=== PATIENT | male | born 1975 | race Caucasian/White ===

== ENCOUNTER 2016-05-08 18:52 | Inpatient (IN) ==
--- NOTE | 2016-05-08 19:27 | Emergency Department Note ---
Disposition Clinical Impression: Suicidal ideation Depression Qualifiers: Depression Type: unspecified Qualified Code(s): F32.9 - Major depressive disorder, single episode, unspecified Overdose Qualifiers: Encounter type: initial encounter Injury intent: intentional self-harm Qualified Code(s): T50.902A - Poisoning by unspecified drugs, medicaments and biological substances, intentional self-harm, initial encounter Disposition: Admitted As Inpatient Condition: Fair Time of Disposition: 21:32 Psych HPI - General Chief Complaint: ED Psychiatric Symptoms Stated Complaint: SI Time Seen by Provider: 05/08/16 19:06 Source: patient Mode of arrival: ambulatory Limitations: no limitations Nursing Notes Reviewed: Yes Vital Signs Reviewed: Yes - History of Present Illness HPI Narrative: 41-year-old male who comes in complaining of depression and suicidal ideation. She is on Suboxone got his prescription on Tuesday and then on his birthday he started taking all of his medicines. He's been taking as much as he can for the last 2 days. He comes in awake and alert does not appear to be intoxicated. Pt complaint: suicidal ideation, feels depressed If medical clearance, reason: psychiatric condition Onset (ago): Just [employer] Duration: constant History of similar episodes: Yes Improves with: none Worsens with: none Associated Psychiatric Symptoms: depression, suicidal ideation Associated symptoms: Reports: denies other symptoms Traumatic symptoms: denies traumatic injury Treatments prior to arrival: none - Related Data Home Medications Medication Instructions Recorded Confirmed Suboxone 8 mg-2 mg Sl Film 0.5 film PO HS 05/09/16 05/09/16 Suboxone 8 mg-2 mg Sl Film 1 film PO QAM 05/09/16 05/09/16 Topiramate [Topamax] 50 mg PO BID 05/09/16 05/09/16 Allergies Allergy/AdvReac Type Severity Reaction Status Date / Time No Known Allergies Allergy Verified 05/08/16 18:56 Constitutional: Denies: fever, chills, weakness, weight change Eyes: Denies: eye pain, eye discharge, vision change ENT ED: Denies: ear pain, throat pain, dental pain, hearing loss, epistaxis, congestion, dysphagia Cardiovascular: Denies: chest pain, palpitations, dyspnea on exertion, edema, syncope Respiratory: Denies: cough, dyspnea, wheezes, hemoptysis, stridor Gastrointestinal: Denies: abdominal pain, nausea, vomiting, diarrhea, constipation, hematemesis, melena, hematochezia Genitourinary: Denies: urgency, dysuria, frequency, hematuria Musculoskeletal: Denies: back pain, neck pain, arthralgia, myalgia Integumentary: Denies: rash, abrasion, lesions Neurological: Denies: headache, weakness, numbness, paresthesias, confusion, abnormal gait, vertigo Psychiatric: Reports: depression, suicidal thoughts. Denies: anxiety, homicidal thoughts, auditory hallucinations, visual hallucinations Endocrine: Denies: fatigue Hematological/Lymphatic: Denies: easy bleeding, easy bruising Allergic/Immunologic: Denies: facial swelling, urticaria Past Medical History - Past Medical History Medical history: Reports: no medical history Psychiatric history: Reports: anxiety, depression, prior suicide attempt, previous psychiatric hospitalization - Social History Smoking Status: Current every day smoker Alcohol use: Reports: occasionally, heavy, recent Drug use: Reports: cocaine, opiates, methamphetamine, prescription drug abuse Physical Exam - General Limitations: no limitations General appearance: alert, in no apparent distress - Head Head exam: atraumatic, normocephalic, normal inspection - Eye Eye exam: Present: normal appearance, PERRL, EOMI - ENT ENT exam: normal exam, normal oropharynx, mucous membranes moist - Neck Neck exam: Present: normal inspection, full ROM, trachea midline - Chest Chest inspection: Present: normal inspection, symmetric chest wall rise - Respiratory Respiratory exam: Present: normal lung sounds bilaterally - Cardiovascular Cardiovascular exam: Present: regular rate, normal rhythm, normal heart sounds - Abdominal Exam Abdominal exam: Present: soft, Non-Tender. Absent: tenderness, distention, guarding, rebound, rigidity - Extremities Exam Extremities exam: Present: normal inspection, full ROM. Absent: tenderness, pedal edema - Expanded Lower Extremity Exam Neurovascular/Tendon exam: Absent: motor deficit, sensory deficit, tendon deficit Gait: observed and normal - Back Exam Back exam: Present: normal inspection, full ROM. Absent: tenderness - Neurological Exam Neurological exam: Present: alert, oriented X3 - Psychiatric Psychiatric exam: Present: normal affect, normal mood - Skin Skin exam: Present: warm, dry, intact, normal color Course - Consultations Consultation #1: Poison control- obs 12 hrs recommended. Time: 20:59 Consultation #2: Discussed with Dr. Esteban who clears the patient to be admitted and wanted a period Time: 21:44 Vital Signs Temperature 97.9 F 05/08/16 18:54 Pulse Rate 99 05/08/16 18:54 Respiratory Rate 16 05/08/16 18:54 Blood Pressure 150/100 05/08/16 18:54 O2 Sat by Pulse Oximetry 97 05/08/16 18:54 Temperature 96.8 F L 05/10/16 20:51 Pulse Rate 87 05/10/16 20:51 Respiratory Rate 16 05/10/16 20:51 Blood Pressure 120/74 05/10/16 20:51 O2 Sat by Pulse Oximetry 99 05/09/16 12:27 Oxygen Delivery Oxygen Delivery Room Air Psych - Lab Data Result diagrams: 05/08/16 19:35 05/08/16 19:35 Lab Results 05/08/16 05/08/16 05/08/16 Range/Units 19:35 19:35 20:10 WBC 9.7 (4.3-11.1) K/mcL RBC 4.89 (4.19-5.50) M/mcL Hgb 14.6 (12.9-16.9) g/dL Hct 44.1 (37.5-50.1) % MCV 90.2 (83.0-100.0) fL MCH 29.9 (28.0-33.3) pg MCHC 33.1 (31.6-35.5) g/dL RDW 13.3 (11.5-14.5) % Plt Count 249 (140-400) K/mcL MPV 8.5 L (9.4-12.4) fL Immature Gran % 0.2 (0-4) % Seg Neutrophils % 62.1 % Lymphocytes % 30.5 % Monocytes % 5.9 % Eosinophils % 0.2 % Basophils % 1.1 % Neutrophils # 6.0 (1.6-8.9) K/mcL Lymphocytes # 2.9 (0.6-4.6) K/mcL Monocytes # 0.6 (0.0-1.3) K/mcL Eosinophils # 0.0 (0.0-0.6) K/mcL Basophils # 0.1 (0.0-0.2) K/mcL Sodium 140 (136-145) mEq/L Potassium 3.8 (3.5-4.5) mEq/L Chloride 110 H (98-109) mEq/L Carbon Dioxide 19 (19-29) mEq/L BUN 15 (8-26) mg/dL Creatinine 1.33 H (0.72-1.25) mg/dL Est GFR ( Amer) > 60 (> 60) Est GFR (Non-Af Amer) 59 L (> 60) BUN/Creatinine Ratio 11 (6-26) Glucose 111 H (70-99) mg/dL Calculated Osmolality 292 (280-300) Calcium 9.2 (8.6-10.8) mg/dL Total Bilirubin 0.3 (0.2-1.2) mg/dL Direct Bilirubin 0.2 (0.0-0.5) mg/dL Indirect Bilirubin 0.1 (0.0-1.2) mg/dL AST 21 (5-34) Units/L ALT 15 (0-55) Units/L Alkaline Phosphatase 70 (38-126) Units/L Serum Total Protein 7.4 (6.0-8.3) g/dL Albumin 3.9 (3.5-5.0) g/dL Globulin 3.5 (2.4-3.5) g/dL Albumin/Globulin Ratio 1.1 (1.1-2.2) Urine Color Yellow (Yellow) Urine Clarity Clear (Clear) Urine pH 5.0 (5.0-8.0) pH Units Ur Specific [place] > 1.030 H (1.010-1.025) Urine Protein Trace (Neg-Trace) mg/dL Urine Glucose (UA) Normal (Normal) mg/dL Urine Ketones Negative (Negative) mg/dL Urine Blood Negative (Negative) Urine Nitrite Negative (Negative) Urine Bilirubin Small H (Negative) Urine Urobilinogen Normal (Normal) mg/dL Ur Leukocyte Esterase Trace H (Negative) Urine Microscopic RBC 5-15 H (0-3) per hpf Urine Microscopic WBC 5-15 H (0-3) per hpf Ur Squamous Epith Cells Many H (None-Few) per lpf Urine Bacteria None Seen (None-Few) per hpf Hyaline Casts None Seen (None-Few) per lpf Salicylates < 5.0 L (15-30) mg/dL Urine Opiates Screen (Jdurpf=407) ng/mL Acetaminophen < 1.0 L (10-30) mcg/mL Ur Barbiturates Screen (Ehyszo=576) ng/mL Ur Phencyclidine Scrn (Cutoff=25) ng/mL Ur Amphetamines Screen (Mwtcrt=4512) ng/mL U Benzodiazepines Scrn (Skermu=667) ng/mL Urine Cocaine Screen (Cutoff= 300) ng/mL U Marijuana (THC) Screen (Cutoff = 50) ng/mL Ethyl Alcohol < 10 (0-10) mg/dL 05/08/16 Range/Units 20:10 WBC (4.3-11.1) K/mcL RBC (4.19-5.50) M/mcL Hgb (12.9-16.9) g/dL Hct (37.5-50.1) % MCV (83.0-100.0) fL MCH (28.0-33.3) pg MCHC (31.6-35.5) g/dL RDW (11.5-14.5) % Plt Count (140-400) K/mcL MPV (9.4-12.4) fL Immature Gran % (0-4) % Seg Neutrophils % % Lymphocytes % % Monocytes % % Eosinophils % % Basophils % % Neutrophils # (1.6-8.9) K/mcL Lymphocytes # (0.6-4.6) K/mcL Monocytes # (0.0-1.3) K/mcL Eosinophils # (0.0-0.6) K/mcL Basophils # (0.0-0.2) K/mcL Sodium (136-145) mEq/L Potassium (3.5-4.5) mEq/L Chloride (98-109) mEq/L Carbon Dioxide (19-29) mEq/L BUN (8-26) mg/dL Creatinine (0.72-1.25) mg/dL Est GFR ( Amer) (> 60) Est GFR (Non-Af Amer) (> 60) BUN/Creatinine Ratio (6-26) Glucose (70-99) mg/dL Calculated Osmolality (280-300) Calcium (8.6-10.8) mg/dL Total Bilirubin (0.2-1.2) mg/dL Direct Bilirubin (0.0-0.5) mg/dL Indirect Bilirubin (0.0-1.2) mg/dL AST (5-34) Units/L ALT (0-55) Units/L Alkaline Phosphatase (38-126) Units/L Serum Total Protein (6.0-8.3) g/dL Albumin (3.5-5.0) g/dL Globulin (2.4-3.5) g/dL Albumin/Globulin Ratio (1.1-2.2) Urine Color (Yellow) Urine Clarity (Clear) Urine pH (5.0-8.0) pH Units Ur Specific [place] (1.010-1.025) Urine Protein (Neg-Trace) mg/dL Urine Glucose (UA) (Normal) mg/dL Urine Ketones (Negative) mg/dL Urine Blood (Negative) Urine Nitrite (Negative) Urine Bilirubin (Negative) Urine Urobilinogen (Normal) mg/dL Ur Leukocyte Esterase (Negative) Urine Microscopic RBC (0-3) per hpf Urine Microscopic WBC (0-3) per hpf Ur Squamous Epith Cells (None-Few) per lpf Urine Bacteria (None-Few) per hpf Hyaline Casts (None-Few) per lpf Salicylates (15-30) mg/dL Urine Opiates Screen Negative (Znduxy=409) ng/mL Acetaminophen (10-30) mcg/mL Ur Barbiturates Screen Negative (Jwjfsz=692) ng/mL Ur Phencyclidine Scrn Negative (Cutoff=25) ng/mL Ur Amphetamines Screen Negative (Srpllg=5813) ng/mL U Benzodiazepines Scrn Negative (Lzmylk=569) ng/mL Urine Cocaine Screen Positive H (Cutoff= 300) ng/mL U Marijuana (THC) Screen Negative (Cutoff = 50) ng/mL Ethyl Alcohol (0-10) mg/dL Psychiatric Medical Clearance - Medical Clearance Checklist Medical History: No Social History Section defined Current Vitals: Last Vital Signs Temp 96.8 F L 05/10/16 20:51 Pulse 87 05/10/16 20:51 Resp 16 05/10/16 20:51 BP 120/74 05/10/16 20:51 Pulse Ox 99 05/09/16 12:27 Abnormal Labs: Abnormal lab results MPV 8.5 fL (9.4-12.4) L 05/08/16 19:35 Chloride 110 mEq/L (98-109) H 05/08/16 19:35 Creatinine 1.33 mg/dL (0.72-1.25) H 05/08/16 19:35 Est GFR (Non-Af Amer) 59 (> 60) L 05/08/16 19:35 Glucose 111 mg/dL (70-99) H 05/08/16 19:35 Ur Specific [place] > 1.030 (1.010-1.025) H 05/08/16 20:10 Urine Bilirubin Small (Negative) H 05/08/16 20:10 Ur Leukocyte Esterase Trace (Negative) H 05/08/16 20:10 Urine Microscopic RBC 5-15 per hpf (0-3) H 05/08/16 20:10 Urine Microscopic WBC 5-15 per hpf (0-3) H 05/08/16 20:10 Ur Squamous Epith Cells Many per lpf (None-Few) H 05/08/16 20:10 Salicylates < 5.0 mg/dL (15-30) L 05/08/16 19:35 Acetaminophen < 1.0 mcg/mL (10-30) L 05/08/16 19:35 Urine Cocaine Screen Positive ng/mL (Cutoff= 300) H 05/08/16 20:10 Statement of Medical Clearance: I have evaluated the patient, reviewed diagnostic information, and certify that the patient's medical condition is sufficiently stable that transfer to the psychiatric unit does not pose a significant risk of deterioration. S.B.A.R. - S.B.A.R. Recommendation: Recommendation based on pending studies, treatments, or consults S.B.A.R. Report Given to: Dr. Kalli Arguelles.A.Jaime Repor Time: 23:00 (Patient with depression, cleared by medicine disposition based on 1A finding)
[2016-05-08 19:42] LABS: Basophils # 0.1 K/mcL (0.0-0.2); Basophils % 1.1 %; Eosinophils % 0.2 %; Hematocrit 44.1 % (37.5-50.1); Hemoglobin 14.6 g/dL (12.9-16.9); Immature Granulocytes % 0.2 % (0-4); Lymphocytes # 2.9 K/mcL (0.6-4.6); Lymphocytes % 30.5 %; Mean Corpuscular HGB Conc 33.1 g/dL (31.6-35.5); Mean Corpuscular Hemoglobin 29.9 pg (28.0-33.3); Mean Corpuscular Volume 90.2 fL (83.0-100.0); Mean Platelet Volume 8.5 fL (9.4-12.4); Monocytes # 0.6 K/mcL (0.0-1.3); Monocytes % 5.9 %; Platelet Count 249 K/mcL (140-400); Red Blood Count 4.89 M/mcL (4.19-5.50); Red Cell Distribution Width 13.3 % (11.5-14.5); Segmented Neutrophils % 62.1 %
[2016-05-08 19:55] LABS: BUN/Creatinine Ratio 11 (6-26); Blood Urea Nitrogen 15 mg/dL (8-26); Calcium 9.2 mg/dL (8.6-10.8); Carbon Dioxide 19 mEq/L (19-29); Chloride 110 mEq/L (98-109); Glucose 111 mg/dL (70-99); Osmolality,Calculated 292 (280-300); Potassium 3.8 mEq/L (3.5-4.5); Sodium 140 mEq/L (136-145); eGFR For African Americans > 60 (> 60); eGFR For Non-African Americans 59 (> 60)
[2016-05-08 19:56] LABS: Acetaminophen < 1.0 mcg/mL (10-30); Ethanol < 10 mg/dL (0-10); Salicylate < 5.0 mg/dL (15-30)
[2016-05-08 20:18] LABS: Bilirubin,Urine Small (Negative); Blood,Urine Negative (Negative); Clarity,Urine Clear (Clear); Color,Urine Yellow (Yellow); Glucose,Urine (UA) Normal (Normal); Ketones,Urine Negative (Negative); Leukocyte Esterase,Urine Trace (Negative); Nitrite,Urine Negative (Negative); Protein,Urine Trace mg/dL (Neg-Trace); Specific Gravity,Urine > 1.030 (1.010-1.025); Urobilinogen,Urine Normal (Normal)
[2016-05-08 20:20] LABS: Bacteria,Urine None Seen per hpf (None-Few); Hyaline Casts,Urine None Seen per lpf (None-Few); Squamous Epithelial Cell,Urine Many per lpf (None-Few)
[2016-05-08 20:24] LABS: Amphetamine Screen,Urine Negative ng/mL (Cutoff=1000); Barbiturate Screen,Urine Negative ng/mL (Cutoff=200); Benzodiazepines Screen,Urine Negative ng/mL (Cutoff=200); Cannabinoid Screen,Urine Negative ng/mL (Cutoff = 50); Cocaine Screen,Urine Positive ng/mL (Cutoff= 300); Opiate Screen,Urine Negative ng/mL (Cutoff=300); Phencyclidine Screen,Urine Negative ng/mL (Cutoff=25)
[2016-05-08 21:09] LABS: Alanine Aminotransferase 15 Units/L (0-55); Albumin 3.9 g/dL (3.5-5.0); Albumin/Globulin Ratio 1.1 (1.1-2.2); Alkaline Phosphatase 70 Units/L (38-126); Aspartate Amino Transferase 21 Units/L (5-34); Bilirubin,Direct 0.2 mg/dL (0.0-0.5); Bilirubin,Indirect 0.1 mg/dL (0.0-1.2); Bilirubin,Total 0.3 mg/dL (0.2-1.2); Globulin 3.5 g/dL (2.4-3.5); Total Protein 7.4 g/dL (6.0-8.3)
--- NOTE | 2016-05-08 22:09 | Internal Medicine Consult Note ---
Date of Encounter: 05/08/16 Time of Encounter: 21:25 Internal Medicine - CN: HPI - Data of Consult Consult date: 05/08/16 Requesting Physician: Dr Bauman - Consult Narrative Reason for consult: Drug overdose, suicide ideamedical clearance for psychiatry hospitalization History of present illness: Mr. 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 He apparently took 30 tablets of Topiramate (unknown strength) and crack cocaine on 04/06, 12 tablets of Gabapentin 04/06 and 04/07. He snorted 1 tablet of Subutrex at about noon today. He feels depressed. He lost his job and his girl friend in the past week. He moved in with his aunt, and planned ending his life in commemoration of his 41 [address] birthday. His mother reports that he has tried ending his life since he was 17. He lost his daughter to cholangiocarcinoma. His mother was the source of Topiramate and Gabapentin. He apparently told his mum he had a headache and his mum provided her supplies of these medication as the patient will not go to see a doctor. The patient says he just feel mental drained and depressed. He does not feel drowsy. He has no other symptoms. His last use of any medication was over 10 hours ago. He is FULL CODE as per discussion, he nominates his mother , Tere Long ([phone]) as his NOK/POA. Medical history: Reports: no medical history Psychiatric history: Reports: anxiety, depression, multiple suicide attempts, previous psychiatric hospitalization Smoking Status: Current every day smoker, >1 ppd Alcohol use: Reports: occasionally, heavy, use on 05/07/2016. Drug use: Reports: cocaine, heroine (now on Subuxone), methamphetamine, prescription drug abuse Family history: Mother: depressio, DM2, CAD, PAD,COPD, HTN, pulmonary HTN, sister: polycythemia, daughter: cholangiocarcinoma. ROS: Depressed. He reports no other symptoms on ROS. A 10-point ROS was performed, positive and relevant negatives are detailed, system-symptom not mentioned is assumed negative unless otherwise stated. Vital Signs Temperature 97.9 F 05/08/16 18:54 Pulse Rate 99 05/08/16 18:54 Respiratory Rate 16 05/08/16 18:54 Blood Pressure 150/100 05/08/16 18:54 O2 Sat by Pulse Oximetry 97 05/08/16 18:54 Temperature 97.9 F 05/08/16 18:54 Pulse Rate 100 05/08/16 20:18 Respiratory Rate 99 05/08/16 20:18 Blood Pressure 127/92 05/08/16 20:18 O2 Sat by Pulse Oximetry 99 05/08/16 20:18 O/E: Not in distress. HEENT: Not pale, anicteric, afebrile, acyanotic, no JND, EOMI, PERRL. Chest: CTAB Heart: RRR, HS1/2, no murmur Abdomen: soft, non-tender, no masses. BODY SERVICE TEAM MEMBER: AAO x 3, no gross focal neurological deficits Skin: No active skin lesion Extremities: no pedal edema, normal pedal pulses, no calf tenderness. Lab Results 05/08/16 05/08/16 05/08/16 Range/Units 19:35 19:35 20:10 WBC 9.7 (4.3-11.1) K/mcL RBC 4.89 (4.19-5.50) M/mcL Hgb 14.6 (12.9-16.9) g/dL Hct 44.1 (37.5-50.1) % MCV 90.2 (83.0-100.0) fL MCH 29.9 (28.0-33.3) pg MCHC 33.1 (31.6-35.5) g/dL RDW 13.3 (11.5-14.5) % Plt Count 249 (140-400) K/mcL MPV 8.5 L (9.4-12.4) fL Immature Gran % 0.2 (0-4) % Seg Neutrophils % 62.1 % Lymphocytes % 30.5 % Monocytes % 5.9 % Eosinophils % 0.2 % Basophils % 1.1 % Neutrophils # 6.0 (1.6-8.9) K/mcL Lymphocytes # 2.9 (0.6-4.6) K/mcL Monocytes # 0.6 (0.0-1.3) K/mcL Eosinophils # 0.0 (0.0-0.6) K/mcL Basophils # 0.1 (0.0-0.2) K/mcL Sodium 140 (136-145) mEq/L Potassium 3.8 (3.5-4.5) mEq/L Chloride 110 H (98-109) mEq/L Carbon Dioxide 19 (19-29) mEq/L BUN 15 (8-26) mg/dL Creatinine 1.33 H (0.72-1.25) mg/dL Est GFR ( Amer) > 60 (> 60) Est GFR (Non-Af Amer) 59 L (> 60) BUN/Creatinine Ratio 11 (6-26) Glucose 111 H (70-99) mg/dL Calculated Osmolality 292 (280-300) Calcium 9.2 (8.6-10.8) mg/dL Total Bilirubin 0.3 (0.2-1.2) mg/dL Direct Bilirubin 0.2 (0.0-0.5) mg/dL Indirect Bilirubin 0.1 (0.0-1.2) mg/dL AST 21 (5-34) Units/L ALT 15 (0-55) Units/L Alkaline Phosphatase 70 (38-126) Units/L Serum Total Protein 7.4 (6.0-8.3) g/dL Albumin 3.9 (3.5-5.0) g/dL Globulin 3.5 (2.4-3.5) g/dL Albumin/Globulin Ratio 1.1 (1.1-2.2) Urine Color Yellow (Yellow) Urine Clarity Clear (Clear) Urine pH 5.0 (5.0-8.0) pH Units Ur Specific [place] > 1.030 H (1.010-1.025) Urine Protein Trace (Neg-Trace) mg/dL Urine Glucose (UA) Normal (Normal) mg/dL Urine Ketones Negative (Negative) mg/dL Urine Blood Negative (Negative) Urine Nitrite Negative (Negative) Urine Bilirubin Small H (Negative) Urine Urobilinogen Normal (Normal) mg/dL Ur Leukocyte Esterase Trace H (Negative) Urine Microscopic RBC 5-15 H (0-3) per hpf Urine Microscopic WBC 5-15 H (0-3) per hpf Ur Squamous Epith Cells Many H (None-Few) per lpf Urine Bacteria None Seen (None-Few) per hpf Hyaline Casts None Seen (None-Few) per lpf Salicylates < 5.0 L (15-30) mg/dL Urine Opiates Screen (Kkdsdu=800) ng/mL Acetaminophen < 1.0 L (10-30) mcg/mL Ur Barbiturates Screen (Ovwowg=477) ng/mL Ur Phencyclidine Scrn (Cutoff=25) ng/mL Ur Amphetamines Screen (Tisqdb=0937) ng/mL U Benzodiazepines Scrn (Qnqmgb=132) ng/mL Urine Cocaine Screen (Cutoff= 300) ng/mL U Marijuana (THC) Screen (Cutoff = 50) ng/mL Ethyl Alcohol < 10 (0-10) mg/dL 05/08/16 Range/Units 20:10 WBC (4.3-11.1) K/mcL RBC (4.19-5.50) M/mcL Hgb (12.9-16.9) g/dL Hct (37.5-50.1) % MCV (83.0-100.0) fL MCH (28.0-33.3) pg MCHC (31.6-35.5) g/dL RDW (11.5-14.5) % Plt Count (140-400) K/mcL MPV (9.4-12.4) fL Immature Gran % (0-4) % Seg Neutrophils % % Lymphocytes % % Monocytes % % Eosinophils % % Basophils % % Neutrophils # (1.6-8.9) K/mcL Lymphocytes # (0.6-4.6) K/mcL Monocytes # (0.0-1.3) K/mcL Eosinophils # (0.0-0.6) K/mcL Basophils # (0.0-0.2) K/mcL Sodium (136-145) mEq/L Potassium (3.5-4.5) mEq/L Chloride (98-109) mEq/L Carbon Dioxide (19-29) mEq/L BUN (8-26) mg/dL Creatinine (0.72-1.25) mg/dL Est GFR ( Amer) (> 60) Est GFR (Non-Af Amer) (> 60) BUN/Creatinine Ratio (6-26) Glucose (70-99) mg/dL Calculated Osmolality (280-300) Calcium (8.6-10.8) mg/dL Total Bilirubin (0.2-1.2) mg/dL Direct Bilirubin (0.0-0.5) mg/dL Indirect Bilirubin (0.0-1.2) mg/dL AST (5-34) Units/L ALT (0-55) Units/L Alkaline Phosphatase (38-126) Units/L Serum Total Protein (6.0-8.3) g/dL Albumin (3.5-5.0) g/dL Globulin (2.4-3.5) g/dL Albumin/Globulin Ratio (1.1-2.2) Urine Color (Yellow) Urine Clarity (Clear) Urine pH (5.0-8.0) pH Units Ur Specific [place] (1.010-1.025) Urine Protein (Neg-Trace) mg/dL Urine Glucose (UA) (Normal) mg/dL Urine Ketones (Negative) mg/dL Urine Blood (Negative) Urine Nitrite (Negative) Urine Bilirubin (Negative) Urine Urobilinogen (Normal) mg/dL Ur Leukocyte Esterase (Negative) Urine Microscopic RBC (0-3) per hpf Urine Microscopic WBC (0-3) per hpf Ur Squamous Epith Cells (None-Few) per lpf Urine Bacteria (None-Few) per hpf Hyaline Casts (None-Few) per lpf Salicylates (15-30) mg/dL Urine Opiates Screen Negative (Crqstq=747) ng/mL Acetaminophen (10-30) mcg/mL Ur Barbiturates Screen Negative (Gzoucb=586) ng/mL Ur Phencyclidine Scrn Negative (Cutoff=25) ng/mL Ur Amphetamines Screen Negative (Guczfy=6166) ng/mL U Benzodiazepines Scrn Negative (Irsdkq=997) ng/mL Urine Cocaine Screen Positive H (Cutoff= 300) ng/mL U Marijuana (THC) Screen Negative (Cutoff = 50) ng/mL Ethyl Alcohol (0-10) mg/dL IMP Polysubstance overdose Suicide attempt, failed Severe depression Illicit drug use PLAN He used only one tablet of Subutrex, which is his usual dose. Use of Topiramate and Gabapentin are far out, he remain asymptomatic, last use of Topiramate> 24 hours ago, last use of Gabapentin> 10 hours ago He use cocaine >24 hours ago. He use alcohol >24 hours ago, serum alcohol level < 10. He is medically cleared for psychiatric hospitalization. Psychiatric consultation. I thank the ED physician for for consulting Hospitalist service. Past Med Surg Social Fam HX - Past Medical History Medical history: no medical history Psychiatric history: anxiety, depression, prior suicide attempt, previous psychiatric hospitalization - Social History Smoking Status: Current every day smoker Alcohol use: occasionally, heavy, recent Drug use: cocaine, opiates, methamphetamine, prescription drug abuse Internal Medicine - CN: Meds Allergies No Known Allergies Allergy (Verified 05/08/16 18:56) Internal Medicine - CN: Exam - Constitutional Vitals: Temp Pulse Resp BP Pulse Ox 97.9 F 100 99 127/92 99 05/08/16 18:54 05/08/16 20:18 05/08/16 20:18 05/08/16 20:18 05/08/16 20:18 Internal Medicine - CN: Reslt - Labs CBC & Chem 7: 05/08/16 19:35 05/08/16 19:35 Labs: Short CBC 05/08/16 Range/Units 19:35 WBC 9.7 (4.3-11.1) K/mcL Hgb 14.6 (12.9-16.9) g/dL Hct 44.1 (37.5-50.1) % Plt Count 249 (140-400) K/mcL Neutrophils # 6.0 (1.6-8.9) K/mcL BMP 05/08/16 19:35 Sodium 140 Potassium 3.8 Chloride 110 H Carbon Dioxide 19 BUN 15 Creatinine 1.33 H Glucose 111 H Calcium 9.2 Liver Function 05/08/16 Range/Units 19:35 Total Bilirubin 0.3 (0.2-1.2) mg/dL Direct Bilirubin 0.2 (0.0-0.5) mg/dL AST 21 (5-34) Units/L ALT 15 (0-55) Units/L Alkaline Phosphatase 70 (38-126) Units/L Albumin 3.9 (3.5-5.0) g/dL Urine 05/08/16 Range/Units 20:10 Urine Color Yellow (Yellow) Urine Clarity Clear (Clear) Urine pH 5.0 (5.0-8.0) pH Units Ur Specific [place] > 1.030 H (1.010-1.025) Urine Protein Trace (Neg-Trace) mg/dL Urine Glucose (UA) Normal (Normal) mg/dL Consult Discharge Plan - Plan Referrals: NO,PCP [Primary Care Provider] -
[2016-05-08] MEDS: Nicotine 14 MG PATCH.TD24 TD SCH (23:55)
[2016-05-09] MEDS ORDERED: Haloperidol Lactate 5 MG/ML VIAL IM ONE (01:18)
[2016-05-09] MEDS ORDERED: *HR* LORazepam 2 MG/ML VIAL IM ONE (01:19)
--- NOTE | 2016-05-09 08:03 | Emergency Department Note ---
Disposition Clinical Impression: Suicidal ideation Depression Qualifiers: Depression Type: unspecified Qualified Code(s): F32.9 - Major depressive disorder, single episode, unspecified Overdose Qualifiers: Encounter type: initial encounter Injury intent: intentional self-harm Qualified Code(s): T50.902A - Poisoning by unspecified drugs, medicaments and biological substances, intentional self-harm, initial encounter Disposition: Transfer Psychiatric Hosp Condition: Fair Referrals: NO,PCP [Primary Care Provider] - Forms: ED Satisfaction Letter Psych HPI - General Chief Complaint: ED Psychiatric Symptoms Stated Complaint: SI Time Seen by Provider: 05/08/16 19:06 Source: patient Mode of arrival: ambulatory Nursing Notes Reviewed: Yes Vital Signs Reviewed: Yes - History of Present Illness Duration: constant Improves with: none Worsens with: none Associated symptoms: Reports: denies other symptoms Treatments prior to arrival: none - Related Data Allergies Allergy/AdvReac Type Severity Reaction Status Date / Time No Known Allergies Allergy Verified 05/08/16 18:56 Constitutional: Denies: fever, chills, weakness, weight change Eyes: Denies: eye pain, eye discharge, vision change ENT ED: Denies: ear pain, throat pain, dental pain, hearing loss, epistaxis, congestion, dysphagia Cardiovascular: Denies: chest pain, palpitations, dyspnea on exertion, edema, syncope Respiratory: Denies: cough, dyspnea, wheezes, hemoptysis, stridor Gastrointestinal: Denies: abdominal pain, nausea, vomiting, diarrhea, constipation, hematemesis, melena, hematochezia Genitourinary: Denies: urgency, dysuria, frequency, hematuria Musculoskeletal: Denies: back pain, neck pain, arthralgia, myalgia Integumentary: Denies: rash, abrasion, lesions Neurological: Denies: headache, weakness, numbness, paresthesias, confusion, abnormal gait, vertigo Psychiatric: Reports: depression, suicidal thoughts. Denies: anxiety, homicidal thoughts, auditory hallucinations, visual hallucinations Endocrine: Denies: fatigue Hematological/Lymphatic: Denies: easy bleeding, easy bruising Allergic/Immunologic: Denies: facial swelling, urticaria Past Medical History - Past Medical History Medical history: Reports: no medical history Psychiatric history: Reports: anxiety, depression, prior suicide attempt, previous psychiatric hospitalization - Social History Smoking Status: Current every day smoker Alcohol use: Reports: occasionally, heavy, recent Drug use: Reports: cocaine, opiates, methamphetamine, prescription drug abuse Physical Exam - General Limitations: no limitations General appearance: alert, in no apparent distress Course Course Narrative: This patient was signed out to me at shift change from Dr. Bauman. Please refer to his note for complete details of the history and physical examination. At shift change the patient has been medically cleared by the hospitalist and is awaiting evaluation and disposition by the [facility] psych service. Patient was seen and evaluated by the [facility] psych service and is presently awaiting arrangements for placement at another facility as there are no reds currently available at our psychiatric unit. At shift change the patient was discussed with the oncoming dayshift team, Dr. Pope and Dr. Murguia, however the charting is been completed and the patient should not require any further intervention charting unless there is a change in disposition or condition. Vital Signs Temperature 97.9 F 05/08/16 18:54 Pulse Rate 99 05/08/16 18:54 Respiratory Rate 16 05/08/16 18:54 Blood Pressure 150/100 05/08/16 18:54 O2 Sat by Pulse Oximetry 97 05/08/16 18:54 Temperature 97.9 F 05/08/16 18:54 Pulse Rate 64 05/09/16 06:42 Respiratory Rate 20 05/09/16 06:42 Blood Pressure 101/70 05/09/16 06:42 O2 Sat by Pulse Oximetry 100 05/09/16 06:42 Oxygen Delivery Oxygen Delivery Room Air Psych - Lab Data Result diagrams: 05/08/16 19:35 05/08/16 19:35 Lab Results 05/08/16 05/08/16 05/08/16 Range/Units 19:35 19:35 20:10 WBC 9.7 (4.3-11.1) K/mcL RBC 4.89 (4.19-5.50) M/mcL Hgb 14.6 (12.9-16.9) g/dL Hct 44.1 (37.5-50.1) % MCV 90.2 (83.0-100.0) fL MCH 29.9 (28.0-33.3) pg MCHC 33.1 (31.6-35.5) g/dL RDW 13.3 (11.5-14.5) % Plt Count 249 (140-400) K/mcL MPV 8.5 L (9.4-12.4) fL Immature Gran % 0.2 (0-4) % Seg Neutrophils % 62.1 % Lymphocytes % 30.5 % Monocytes % 5.9 % Eosinophils % 0.2 % Basophils % 1.1 % Neutrophils # 6.0 (1.6-8.9) K/mcL Lymphocytes # 2.9 (0.6-4.6) K/mcL Monocytes # 0.6 (0.0-1.3) K/mcL Eosinophils # 0.0 (0.0-0.6) K/mcL Basophils # 0.1 (0.0-0.2) K/mcL Sodium 140 (136-145) mEq/L Potassium 3.8 (3.5-4.5) mEq/L Chloride 110 H (98-109) mEq/L Carbon Dioxide 19 (19-29) mEq/L BUN 15 (8-26) mg/dL Creatinine 1.33 H (0.72-1.25) mg/dL Est GFR ( Amer) > 60 (> 60) Est GFR (Non-Af Amer) 59 L (> 60) BUN/Creatinine Ratio 11 (6-26) Glucose 111 H (70-99) mg/dL Calculated Osmolality 292 (280-300) Calcium 9.2 (8.6-10.8) mg/dL Total Bilirubin 0.3 (0.2-1.2) mg/dL Direct Bilirubin 0.2 (0.0-0.5) mg/dL Indirect Bilirubin 0.1 (0.0-1.2) mg/dL AST 21 (5-34) Units/L ALT 15 (0-55) Units/L Alkaline Phosphatase 70 (38-126) Units/L Serum Total Protein 7.4 (6.0-8.3) g/dL Albumin 3.9 (3.5-5.0) g/dL Globulin 3.5 (2.4-3.5) g/dL Albumin/Globulin Ratio 1.1 (1.1-2.2) Urine Color Yellow (Yellow) Urine Clarity Clear (Clear) Urine pH 5.0 (5.0-8.0) pH Units Ur Specific [place] > 1.030 H (1.010-1.025) Urine Protein Trace (Neg-Trace) mg/dL Urine Glucose (UA) Normal (Normal) mg/dL Urine Ketones Negative (Negative) mg/dL Urine Blood Negative (Negative) Urine Nitrite Negative (Negative) Urine Bilirubin Small H (Negative) Urine Urobilinogen Normal (Normal) mg/dL Ur Leukocyte Esterase Trace H (Negative) Urine Microscopic RBC 5-15 H (0-3) per hpf Urine Microscopic WBC 5-15 H (0-3) per hpf Ur Squamous Epith Cells Many H (None-Few) per lpf Urine Bacteria None Seen (None-Few) per hpf Hyaline Casts None Seen (None-Few) per lpf Salicylates < 5.0 L (15-30) mg/dL Urine Opiates Screen (Mpydfh=881) ng/mL Acetaminophen < 1.0 L (10-30) mcg/mL Ur Barbiturates Screen (Iaczfo=820) ng/mL Ur Phencyclidine Scrn (Cutoff=25) ng/mL Ur Amphetamines Screen (Fcsmce=8753) ng/mL U Benzodiazepines Scrn (Wwaeaf=400) ng/mL Urine Cocaine Screen (Cutoff= 300) ng/mL U Marijuana (THC) Screen (Cutoff = 50) ng/mL Ethyl Alcohol < 10 (0-10) mg/dL 05/08/16 Range/Units 20:10 WBC (4.3-11.1) K/mcL RBC (4.19-5.50) M/mcL Hgb (12.9-16.9) g/dL Hct (37.5-50.1) % MCV (83.0-100.0) fL MCH (28.0-33.3) pg MCHC (31.6-35.5) g/dL RDW (11.5-14.5) % Plt Count (140-400) K/mcL MPV (9.4-12.4) fL Immature Gran % (0-4) % Seg Neutrophils % % Lymphocytes % % Monocytes % % Eosinophils % % Basophils % % Neutrophils # (1.6-8.9) K/mcL Lymphocytes # (0.6-4.6) K/mcL Monocytes # (0.0-1.3) K/mcL Eosinophils # (0.0-0.6) K/mcL Basophils # (0.0-0.2) K/mcL Sodium (136-145) mEq/L Potassium (3.5-4.5) mEq/L Chloride (98-109) mEq/L Carbon Dioxide (19-29) mEq/L BUN (8-26) mg/dL Creatinine (0.72-1.25) mg/dL Est GFR ( Amer) (> 60) Est GFR (Non-Af Amer) (> 60) BUN/Creatinine Ratio (6-26) Glucose (70-99) mg/dL Calculated Osmolality (280-300) Calcium (8.6-10.8) mg/dL Total Bilirubin (0.2-1.2) mg/dL Direct Bilirubin (0.0-0.5) mg/dL Indirect Bilirubin (0.0-1.2) mg/dL AST (5-34) Units/L ALT (0-55) Units/L Alkaline Phosphatase (38-126) Units/L Serum Total Protein (6.0-8.3) g/dL Albumin (3.5-5.0) g/dL Globulin (2.4-3.5) g/dL Albumin/Globulin Ratio (1.1-2.2) Urine Color (Yellow) Urine Clarity (Clear) Urine pH (5.0-8.0) pH Units Ur Specific [place] (1.010-1.025) Urine Protein (Neg-Trace) mg/dL Urine Glucose (UA) (Normal) mg/dL Urine Ketones (Negative) mg/dL Urine Blood (Negative) Urine Nitrite (Negative) Urine Bilirubin (Negative) Urine Urobilinogen (Normal) mg/dL Ur Leukocyte Esterase (Negative) Urine Microscopic RBC (0-3) per hpf Urine Microscopic WBC (0-3) per hpf Ur Squamous Epith Cells (None-Few) per lpf Urine Bacteria (None-Few) per hpf Hyaline Casts (None-Few) per lpf Salicylates (15-30) mg/dL Urine Opiates Screen Negative (Foweqr=462) ng/mL Acetaminophen (10-30) mcg/mL Ur Barbiturates Screen Negative (Uagutt=824) ng/mL Ur Phencyclidine Scrn Negative (Cutoff=25) ng/mL Ur Amphetamines Screen Negative (Rywypg=4973) ng/mL U Benzodiazepines Scrn Negative (Qnxlbp=549) ng/mL Urine Cocaine Screen Positive H (Cutoff= 300) ng/mL U Marijuana (THC) Screen Negative (Cutoff = 50) ng/mL Ethyl Alcohol (0-10) mg/dL Psychiatric Medical Clearance - Medical Clearance Checklist Medical History: No Social History Section defined Current Vitals: Last Vital Signs Temp 97.9 F 05/08/16 18:54 Pulse 64 05/09/16 06:42 Resp 20 05/09/16 06:42 BP 101/70 05/09/16 06:42 Pulse Ox 100 05/09/16 06:42 Psychiatric Lab Panel: Drug Levels and Toxicity 05/08/16 05/08/16 19:35 20:10 Urine Opiates Screen Negative Acetaminophen < 1.0 L Ur Barbiturates Screen Negative Ur Phencyclidine Scrn Negative Ur Amphetamines Screen Negative U Benzodiazepines Scrn Negative Urine Cocaine Screen Positive H U Marijuana (THC) Screen Negative Ethyl Alcohol < 10 Abnormal Labs: Abnormal lab results MPV 8.5 fL (9.4-12.4) L 05/08/16 19:35 Chloride 110 mEq/L (98-109) H 05/08/16 19:35 Creatinine 1.33 mg/dL (0.72-1.25) H 05/08/16 19:35 Est GFR (Non-Af Amer) 59 (> 60) L 05/08/16 19:35 Glucose 111 mg/dL (70-99) H 05/08/16 19:35 Ur Specific [place] > 1.030 (1.010-1.025) H 05/08/16 20:10 Urine Bilirubin Small (Negative) H 05/08/16 20:10 Ur Leukocyte Esterase Trace (Negative) H 05/08/16 20:10 Urine Microscopic RBC 5-15 per hpf (0-3) H 05/08/16 20:10 Urine Microscopic WBC 5-15 per hpf (0-3) H 05/08/16 20:10 Ur Squamous Epith Cells Many per lpf (None-Few) H 05/08/16 20:10 Salicylates < 5.0 mg/dL (15-30) L 05/08/16 19:35 Acetaminophen < 1.0 mcg/mL (10-30) L 05/08/16 19:35 Urine Cocaine Screen Positive ng/mL (Cutoff= 300) H 05/08/16 20:10 Statement of Medical Clearance: I have evaluated the patient, reviewed diagnostic information, and certify that the patient's medical condition is sufficiently stable that transfer to the psychiatric unit does not pose a significant risk of deterioration.
[2016-05-09] MEDS: Nicotine 14 MG PATCH.TD24 TD SCH (12:28)
[2016-05-09] MEDS ORDERED: Haloperidol Lactate 5 MG/ML VIAL IM PRN (15:53)
[2016-05-09] MEDS ORDERED: traZODone 50 MG TABLET PO PRN (15:53)
[2016-05-09] MEDS ORDERED: hydrOXYzine pamoate 25 MG CAPSULE PO PRN (15:53)
[2016-05-09] MEDS ORDERED: *HR* LORazepam 2 MG/ML VIAL IM PRN (15:53)
[2016-05-09] MEDS ORDERED: Ibuprofen 400 MG TABLET PO PRN (15:53)
[2016-05-09] MEDS: *HR* LORazepam 1 MG TABLET PO PRN (16:10)
[2016-05-09] MEDS: Nicotine 21 MG PATCH.TD24 TD SCH (16:10)
[2016-05-09] MEDS: Topiramate 25 MG TABLET PO SCH (22:19)
[2016-05-10] MEDS: Nicotine 21 MG PATCH.TD24 TD SCH (08:37)
[2016-05-10] MEDS: Topiramate 25 MG TABLET PO SCH ×2 (08:40→20:32)
--- NOTE | 2016-05-10 10:56 | Psychiatry History & Physical ---
Date of Encounter: 05/10/16 Time of Encounter: 10:52 History of Present Illness Patient Stated Chief Complaint: suicidal Medicare Admission Attestation: For traditional Medicare patients the provided hospital inpatient services are reasonable and necessary and in the case of services not specified as inpatient -only under 42 CFR 419.22 (n), that they are appropriately provided as inpatient services in accordance 42 CFR 412.3. For Critical Access Hospital the patient may reasonably be expected to be discharged or transferred to a hospital within 96 hours after admission to the Critical Access Hospital. Admitted From: Emergency Dept History of Present Illness: Mr. Long is a 41 year old male admitted from the emergency room with his presentation depression and suicidal ideation patient was talking about killing himself and having many family stressors also in the emergency room he was found to be positive for cocaine and has a history of substance abuse for opiates and cocaine use. Past Med Surg Social Fam HX - Past Medical History Medical history: no medical history - Past Psychiatric History Psychiatric history: Reports: previous psychiatric hospitalization Family psychiatric history: Unknown Family History of Suicide: Unknown - Social History Smoking Status: Current every day smoker Smokeless Tobacco Status: No Alcohol use: occasionally, heavy, recent Drug use: cocaine, opiates, methamphetamine, prescription drug abuse Medications & Allergies Suboxone 8 mg-2 mg Sl Film 0.5 film PO HS 05/09/16 [History] Suboxone 8 mg-2 mg Sl Film 1 film PO QAM 05/09/16 [History] Topiramate [Topamax] 50 mg PO BID 05/09/16 [History] Allergies No Known Allergies Allergy (Verified 05/08/16 18:56) Review of Systems Psychiatric: Reports: depression, suicidal ideation, auditory hallucinations Mental Status Exam Patient orientation: Yes Person, Yes Time, Yes Place Level of alertness: Alert Patient appearance: Well Groomed, Well-nourished Behavior: agitated, hostile, restless, uncooperative Psychomotor activity: Agitated Eye contact: Fleeting Contact Mood description: Angry, Irritable Patient description of mood: Ineed my subaxon and cigaretts Affect description: labile, dysphoric Speech pattern: Clear, Coherent, Inappropriate to situation, Other (hostile) Speech volume: Normal Thought process: Linear, Goal Oriented Thought content: Yes Suicidal ideation Perceptual disturbances: No Auditory hallucinations, No Visual hallucinations Attention span: Unable to Focus Memory description: Immediate Impaired Patient reliability: Not Reliable Historian Intelligence estimate: Average Judgment: Poor Insight: None Results - Vital Signs Vital signs: Temp Pulse Resp BP Pulse Ox 98 F 80 16 100/63 99 05/10/16 09:00 05/10/16 09:00 05/10/16 09:00 05/10/16 09:00 05/09/16 12:27 - Labs Labs: Laboratory Last Values WBC 9.7 K/mcL (4.3-11.1) 05/08/16 19:35 RBC 4.89 M/mcL (4.19-5.50) 05/08/16 19:35 Hgb 14.6 g/dL (12.9-16.9) 05/08/16 19:35 Hct 44.1 % (37.5-50.1) 05/08/16 19:35 MCV 90.2 fL (83.0-100.0) 05/08/16 19:35 MCH 29.9 pg (28.0-33.3) 05/08/16 19:35 MCHC 33.1 g/dL (31.6-35.5) 05/08/16 19:35 RDW 13.3 % (11.5-14.5) 05/08/16 19:35 Plt Count 249 K/mcL (140-400) 05/08/16 19:35 MPV 8.5 fL (9.4-12.4) L 05/08/16 19:35 Immature Gran % 0.2 % (0-4) 05/08/16 19:35 Seg Neutrophils % 62.1 % 05/08/16 19:35 Lymphocytes % 30.5 % 05/08/16 19:35 Monocytes % 5.9 % 05/08/16 19:35 Eosinophils % 0.2 % 05/08/16 19:35 Basophils % 1.1 % 05/08/16 19:35 Neutrophils # 6.0 K/mcL (1.6-8.9) 05/08/16 19:35 Lymphocytes # 2.9 K/mcL (0.6-4.6) 05/08/16 19:35 Monocytes # 0.6 K/mcL (0.0-1.3) 05/08/16 19:35 Eosinophils # 0.0 K/mcL (0.0-0.6) 05/08/16 19:35 Basophils # 0.1 K/mcL (0.0-0.2) 05/08/16 19:35 Sodium 140 mEq/L (136-145) 05/08/16 19:35 Potassium 3.8 mEq/L (3.5-4.5) 05/08/16 19:35 Chloride 110 mEq/L (98-109) H 05/08/16 19:35 Carbon Dioxide 19 mEq/L (19-29) 05/08/16 19:35 BUN 15 mg/dL (8-26) 05/08/16 19:35 Creatinine 1.33 mg/dL (0.72-1.25) H 05/08/16 19:35 Est GFR ( Amer) > 60 (> 60) 05/08/16 19:35 Est GFR (Non-Af Amer) 59 (> 60) L 05/08/16 19:35 BUN/Creatinine Ratio 11 (6-26) 05/08/16 19:35 Glucose 111 mg/dL (70-99) H 05/08/16 19:35 Calculated Osmolality 292 (280-300) 05/08/16 19:35 Calcium 9.2 mg/dL (8.6-10.8) 05/08/16 19:35 Total Bilirubin 0.3 mg/dL (0.2-1.2) 05/08/16 19:35 Direct Bilirubin 0.2 mg/dL (0.0-0.5) 05/08/16 19:35 Indirect Bilirubin 0.1 mg/dL (0.0-1.2) 05/08/16 19:35 AST 21 Units/L (5-34) 05/08/16 19:35 ALT 15 Units/L (0-55) 05/08/16 19:35 Alkaline Phosphatase 70 Units/L (38-126) 05/08/16 19:35 Serum Total Protein 7.4 g/dL (6.0-8.3) 05/08/16 19:35 Albumin 3.9 g/dL (3.5-5.0) 05/08/16 19:35 Globulin 3.5 g/dL (2.4-3.5) 05/08/16 19:35 Albumin/Globulin Ratio 1.1 (1.1-2.2) 05/08/16 19:35 Urine Color Yellow (Yellow) 05/08/16 20:10 Urine Clarity Clear (Clear) 05/08/16 20:10 Urine pH 5.0 pH Units (5.0-8.0) 05/08/16 20:10 Ur Specific [place] > 1.030 (1.010-1.025) H 05/08/16 20:10 Urine Protein Trace mg/dL (Neg-Trace) 05/08/16 20:10 Urine Glucose (UA) Normal mg/dL (Normal) 05/08/16 20:10 Urine Ketones Negative mg/dL (Negative) 05/08/16 20:10 Urine Blood Negative (Negative) 05/08/16 20:10 Urine Nitrite Negative (Negative) 05/08/16 20:10 Urine Bilirubin Small (Negative) H 05/08/16 20:10 Urine Urobilinogen Normal mg/dL (Normal) 05/08/16 20:10 Ur Leukocyte Esterase Trace (Negative) H 05/08/16 20:10 Urine Microscopic RBC 5-15 per hpf (0-3) H 05/08/16 20:10 Urine Microscopic WBC 5-15 per hpf (0-3) H 05/08/16 20:10 Ur Squamous Epith Cells Many per lpf (None-Few) H 05/08/16 20:10 Urine Bacteria None Seen per hpf (None-Few) 05/08/16 20:10 Hyaline Casts None Seen per lpf (None-Few) 05/08/16 20:10 Salicylates < 5.0 mg/dL (15-30) L 05/08/16 19:35 Urine Opiates Screen Negative ng/mL (Kayurz=992) 05/08/16 20:10 Acetaminophen < 1.0 mcg/mL (10-30) L 05/08/16 19:35 Ur Barbiturates Screen Negative ng/mL (Kwjmyn=950) 05/08/16 20:10 Ur Phencyclidine Scrn Negative ng/mL (Cutoff=25) 05/08/16 20:10 Ur Amphetamines Screen Negative ng/mL (Mdwicz=6511) 05/08/16 20:10 U Benzodiazepines Scrn Negative ng/mL (Mulbgm=185) 05/08/16 20:10 Urine Cocaine Screen Positive ng/mL (Cutoff= 300) H 05/08/16 20:10 U Marijuana (THC) Screen Negative ng/mL (Cutoff = 50) 05/08/16 20:10 Ethyl Alcohol < 10 mg/dL (0-10) 05/08/16 19:35 Assessment and Plan (1) Suicidal ideation Current visit: Yes Status: Acute Plan: Admit inpatient for safety and stabilization, Close observation, Suicide Precautions per unit protocol, Encourage participation in unit milieu, Group Therapy, Monitor sleep, Monitor appetite Additional Plan: pt refused and discussion of treatment plan and insists to be discharged to get his Suboxone and be able to smoke. At the same time he endorse suicidal ideation. Risks, benefits, side effects, alternatives discussed w/pt: No (refused treatment) Patient agreeable to treatment: No (refused) Estimated Length of Stay (Days): 3 (2) Cocaine addiction Current visit: Yes Status: Acute Plan: Admit inpatient for safety and stabilization, Close observation, Suicide Precautions per unit protocol, Encourage participation in unit milieu, Group Therapy, Monitor sleep, Monitor appetite Risks, benefits, side effects, alternatives discussed w/pt: No (refused) Patient agreeable to treatment: No ( refused) Qualifiers: Substance use status: with intoxication Complication of substance-induced condition: with perceptual disturbance Qualified Code(s): F14.222 - Cocaine dependence with intoxication with perceptual disturbance (3) Opiate addiction Current visit: Yes Status: Acute Plan: Admit inpatient for safety and stabilization, Close observation, Suicide Precautions per unit protocol, Encourage participation in unit milieu, Group Therapy, Monitor sleep, Monitor appetite Risks, benefits, side effects, alternatives discussed w/pt: No (refused) Patient agreeable to treatment: No ( refused) Qualifiers: Substance use status: in withdrawal Qualified Code(s): F11.23 - Opioid dependence with withdrawal
[2016-05-10] MEDS: *HR* LORazepam 1 MG TABLET PO PRN (18:17)
[2016-05-10] MEDS: Divalproex (12 HR) 250 MG TABLET PO SCH (20:32)
[2016-05-11] MEDS: Nicotine 21 MG PATCH.TD24 TD SCH (08:31)
[2016-05-11] MEDS: Topiramate 25 MG TABLET PO SCH (08:32)
[2016-05-11] MEDS: Divalproex (12 HR) 250 MG TABLET PO SCH (08:32)
[2016-05-11 09:11] VITALS: BP 110/74
--- NOTE | 2016-05-11 11:44 | Discharge Summary ---
Date of Encounter: 05/11/16 Time of Encounter: 11:15 Diagnosis - Discharge Diagnosis (1) Depression Status: Chronic Qualifiers: Depression Type: unspecified Qualified Code(s): F32.9 - Major depressive disorder, single episode, unspecified Medications - Discharge Medications Prescriptions: Topiramate [Topamax] 50 mg PO BID #20 tablet Suboxone 8 mg-2 mg Sl Film 0.5 film PO HS 05/09/16 [History] Suboxone 8 mg-2 mg Sl Film 1 film PO QAM 05/09/16 [History] Topiramate [Topamax] 50 mg PO BID #20 tablet 05/11/16 [Rx] Allergies No Known Allergies Allergy (Verified 05/08/16 18:56) Provider Date of admission: 05/09/16 14:34 Primary care physician: PCP NO Discharging clinician: Eric Valerio Assessment and Plan - Patient/Caregiver Discharge Instructions Activity: resume usual activities as tolerated, increase activity as tolerated, return to work Diet: regular diet Additional Instructions: Patient plans to resume Suboxone treatment services at [facility]. Patient reports having an appointment there this date, 05/11/2016 at 2:40pm. - Follow up Plan Follow up with: Farzana Larson [Other] - 05/12/16 3:00 pm (This appointment is with Rehana to establish you as a patient with the agency. Once your case is open you will receive follow-up for medication managemen and counseling as needed. Please bring your insurance card and photo ID.) Overall status at discharge: Stable Disposition: Home, Self-Care Hospital Course Hospital course: Mr. Long is a 41 year old male who was admitted with suicidal thoughts and an attempted overdose secondary to multiple stresses in his life including his 41st birthday, recent breakup with his girlfriend and the anniversary of the of his daughter 1 year ago. He has not been having suicidal thoughts for the past 24 hours. He does not like the Depakote nor Trazodone secondary to side effects. (He states he has unusual dreams and is restless.) He feels the Topamax works fine and will continue to rely on it for his mood. He also will talk to his new outpatient therapist and psychiatrist regarding restarting Lexapro. He had been on it previously and felt it may have helped some, but now believes the dose may need to be higher. He did not want to start it here with his previous psychiatrist. He was stopped on it when he switched Suboxone doctors as the new doctor was unwilling to prescribe it. He is unsure why. He denies SI/HI, A/V hallucinations. He denies side effects of his current medications; stopping the Depakote and Trazodone. He is no longer feeling hopeless or helpless. His sleep is okay and his appetite is good. His energy and concentration are improving. He is no longer feeling sad and down. He is hopeful about starting college soon and has a safe place to live. He believes part of what he is feeling currently regarding anxiety is withdraw from his Suboxone and needs to complete his follow up appointment today with his doctor to continue therapy. His depression is better and he is feeling hopeful that he now has a primary care doctor and a therapist and psychiatrist he can see in outpatient which was set up by the unit director of social work. Time spent discussing smoking cessation with patient: 3 to 10 minutes Does patient wish to continue nicotine replacement upon disc: No - Time Spent with Patient Total time spent providing and/or coordinating discharge services: 25 min with psychiatrist Quality - Multiple Antipsychotics Patient discharged on 2 or more antipsychotic medications: No Mental Status Exam - Mental Status Exam Patient orientation: Yes Person, Yes Time, Yes Place, Yes Circumstance Level of alertness: Alert, Follows commands Patient appearance: Appropriate, Well Groomed, Well-nourished Behavior: calm, cooperative, anxious (Mildly anxious regarding his sobriety; needing Suboxone) Psychomotor activity: Normal Eye contact: Maintains Eye Contact Mood description: Depressed (Still mildy depressed, but hopeful) Affect description: congruent with mood Speech pattern: Normal rate, Normal rhythm, Normal tone, Appropriate, Clear, Coherent Speech Volume: Normal Thought process: Logical, Linear, Goal Oriented Thought Content: Yes Intact Judgment: Fair Insight: Partial
== END 2016-05-11 13:05 | disposition home or self-care (01) | DRG 812 ==
LOC: EMEROO 18:52 → 1ANU 05-09 14:34
PROVIDERS: ADMIT Psychiatry & Neurology Psychiatry; ATTEND Psychiatry & Neurology Psychiatry

== ENCOUNTER 2017-11-16 12:05 | Observation (INO) ==
[2017-11-16] MEDS ORDERED: Isovue-370 500 ML INFUS..BTL IV ONE (12:14)
--- NOTE | 2017-11-16 12:14 | Emergency Department Note ---
Disposition Clinical Impression: Hepatitis A Qualifiers: Hepatic coma status: without hepatic coma Qualified Code(s): B15.9 - Hepatitis A without hepatic coma Hepatitis B Qualifiers: Viral hepatitis chronicity: unspecified Hepatic coma status: without hepatic coma Hepatitis delta agent presence: without delta-agent Qualified Code(s): B19.10 - Unspecified viral hepatitis B without hepatic coma UTI (urinary tract infection) Qualifiers: Urinary tract infection type: acute cystitis Hematuria presence: without hematuria Qualified Code(s): N30.00 - Acute cystitis without hematuria Acute liver failure Qualifiers: Hepatic coma status: without hepatic coma Qualified Code(s): K72.00 - Acute and subacute hepatic failure without coma Disposition: Admitted As Inpatient Condition: Fair Time of Disposition: 14:22 Abdominal Pain HPI - General Chief Complaint: ED Abdominal Pain Stated Complaint: ABD pain, N/V Nursing Notes Reviewed: Yes Vital Signs Reviewed: Yes - History of Present Illness HPI Narrative: 42-year-old male presents emergency department with concern for nausea, vomiting , right upper quadrant abdominal pain. Patient has history of IV drug use. Last use of heroin was 2 days ago. Patient does have his gallbladder. Denies any fevers, chest pain, pressure, tightness, cough, sputum production. Pain Scale: 8 - Related Data Home Medications Medication Instructions Recorded Confirmed No Known Home Drugs 11/16/17 11/16/17 Allergies Allergy/AdvReac Type Severity Reaction Status Date / Time No Known Allergies Allergy Verified 11/16/17 12:09 All systems ED: reviewed and negative except as stated. Review of Systems: As Per HPI Constitutional: Denies: fever Gastrointestinal: Reports: nausea, vomiting Genitourinary: Denies: urgency, dysuria, frequency Integumentary: Denies: rash Endocrine: Reports: fatigue Abdominal Pain PMH - Past Medical History Medical history: Reports: no medical history Male Surgical History: Reports: vasectomy, other Psychiatric history: Reports: anxiety, bipolar, depression, prior suicide attempt, previous psychiatric hospitalization - Social History Smoking status: Current every day smoker Alcohol use: Reports: none Drug use: Reports: cocaine, opiates, methamphetamine Physical Exam - Head Head exam: normocephalic - Eye Eye exam: Present: EOMI - ENT ENT exam: normal oropharynx - Neck Neck exam: Present: trachea midline - Chest Chest inspection: Present: symmetric chest wall rise - Respiratory Respiratory exam: Present: normal lung sounds bilaterally. Absent: respiratory distress, accessory muscle use - Cardiovascular Cardiovascular exam: Present: regular rate, normal rhythm, normal heart sounds - Abdominal Exam Abdominal exam: Present: soft. Absent: distention, guarding, rebound, rigidity Abdominal tenderness: Present: RUQ, moderate - Extremities Exam Extremities exam: Present: normal capillary refill - Back Exam Back exam: Present: full ROM - Neurological Exam Neurological exam: Present: alert, oriented X3, CN II-XII intact - Psychiatric Psychiatric exam: Present: normal affect, normal mood Course Vital Signs Temperature 98.6 F 11/16/17 12:08 Pulse Rate 92 11/16/17 12:08 Respiratory Rate 18 11/16/17 12:08 Blood Pressure 139/88 11/16/17 12:08 O2 Sat by Pulse Oximetry 98 11/16/17 12:08 Temperature 98.3 F 11/16/17 22:58 Pulse Rate 79 11/16/17 22:58 Respiratory Rate 16 11/16/17 22:58 Blood Pressure 114/78 11/16/17 22:58 O2 Sat by Pulse Oximetry 97 11/16/17 22:58 Oxygen Delivery Oxygen Delivery Room Air Abdominal Pain - MDM Narrative Medical decision making narrative: 42-year-old male presents emergency department with concern for weakness, nausea , vomiting, right upper quadrant abdominal pain. Patient has scleral icterus on physical exam. Concern for right upper quadrant pathology such as hepatitis , cholecystitis. With a CT scan of abdomen and pelvis which revealed free fluid in the right upper quadrant extending along the side of the duodenum most of the gallbladder. There was some periportal edema noted as well. Concern for hepatitis by radiology. AST was 2361. ALT greater than 500. Patient positive for hepatitis a as well as hepatitis B on the hepatitis panel. A Shantz bilirubin was elevated at 3.1 total. Patient has positive nitrites in urine. We have given a gram Rocephin here in the emergency department to address this. Patient was given pain control as well as fluids in the emergency department. There was extensive discussion at bedside regarding patient's pain medication addiction, however, in the acute emergent setting, we felt as if the chronic pain medication was the safest and most effective medication to treat his acute symptoms in the setting of possible hepatic failure. He was also given Zofran for his nausea. Discussed the case with gastroenterology who said that they would agree to be consulted on the floor patient be admitted. Spoke with hospitalist agreed to accept patient for admission as well. Spoke with patient at bedside and he agreed for the plan. Abdomen/Pelvis CT 11/16/17 12:14 IMPRESSION: There is free fluid in the right upper quadrant in the diego hepatis extending along side the duodenum and also to the gallbladder. Also of note is some periportal edema. Differentials would include hepatitis, duodenal ulcer disease or less favored to cholecystitis. No gallstones are appreciated. D/ / Jae Mohan MD / Jae Mohan MD Interpreting Provider: Jae Mohan MD Chest X-Ray 11/16/17 12:15 IMPRESSION: No acute cardiopulmonary disease. D/ / 11/16/2017 12:34:08 Daniel Doyle MD / Tasia Gonzalez Interpreting Provider: Daniel Doyle MD - Lab Data Result diagrams: 11/16/17 12:36 11/16/17 12:36 Lab Results 11/16/17 11/16/17 11/16/17 Range/Units 12:32 12:36 12:36 WBC 3.8 L (4.3-11.1) K/mcL RBC 5.28 (4.19-5.50) M/mcL Hgb 15.4 (12.9-16.9) g/dL Hct 45.5 (37.5-50.1) % MCV 86.2 (83.0-100.0) fL MCH 29.2 (28.0-33.3) pg MCHC 33.8 (31.6-35.5) g/dL RDW 14.6 H (11.5-14.5) % Plt Count 145 (140-400) K/mcL MPV 9.4 (9.4-12.4) fL Immature Gran % 0.3 (0-4) % Seg Neutrophils % 35.5 % Lymphocytes % 52.6 % Monocytes % 9.5 % Eosinophils % 0.8 % Basophils % 1.3 % Neutrophils # 1.4 L (1.6-8.9) K/mcL Lymphocytes # 2.0 (0.6-4.6) K/mcL Monocytes # 0.4 (0.0-1.3) K/mcL Eosinophils # 0.0 (0.0-0.6) K/mcL Basophils # 0.1 (0.0-0.2) K/mcL Reactive Lymphocytes Present A (Not Present) Platelet Estimate Normal (Normal) PT (9.4-12.1) Seconds INR APTT (26.0-36.0) Seconds Sodium 136 (136-145) mEq/L Potassium 4.1 (3.5-5.1) mEq/L Chloride 103 (98-107) mEq/L Carbon Dioxide 26 (23-29) mEq/L BUN 14 (6-20) mg/dL Creatinine 0.96 (0.70-1.30) mg/dL Est GFR ( Amer) > 60 (> 60) Est GFR (Non-Af Amer) > 60 (> 60) BUN/Creatinine Ratio 15 (6-26) Glucose 133 H (70-105) mg/dL Calculated Osmolality 284 (280-300) Calcium 8.9 (8.6-10.3) mg/dL Total Bilirubin 3.6 H (0.3-1.0) mg/dL Direct Bilirubin (0.0-0.2) mg/dL Indirect Bilirubin (0.0-1.2) mg/dL AST 2361 H (13-39) Units/L ALT > 500 H (7-52) Units/L Alkaline Phosphatase 272 H (34-104) Units/L Troponin I < 0.03 (< 0.04) ng/mL Serum Total Protein 7.1 (6.4-8.9) g/dL Albumin 4.0 (3.5-5.7) g/dL Globulin 3.1 (2.4-3.5) g/dL Albumin/Globulin Ratio 1.3 (1.1-2.2) Lipase 46 (11-82) Units/L Urine Color [place] A (Yellow) Urine Clarity Clear (Clear) Urine pH 6.0 (5.0-8.0) pH Units Ur Specific [place] > 1.030 H (1.010-1.025) Urine Protein 30 H (Neg-Trace) mg/dL Urine Glucose (UA) Normal (Normal) mg/dL Urine Ketones 15 H (Negative) mg/dL Urine Blood Negative (Negative) Urine Nitrite Positive A (Negative) Urine Bilirubin Moderate H (Negative) Urine Urobilinogen Normal (Normal) mg/dL Ur Leukocyte Esterase Small H (Negative) Urine Microscopic RBC 5-15 H (0-3) per hpf Urine Microscopic WBC 0-3 (0-3) per hpf Ur Squamous Epith Cells None Seen (None-Few) per lpf Urine Bacteria None Seen (None-Few) per hpf Hyaline Casts None Seen (None-Few) per lpf Ur Culture Indicated? YES A (NO) Hepatitis A IgM Ab (Nonreactive) Hep Bs Antigen (Nonreactive) Hep B Core IgM Ab (Nonreactive) Hepatitis C Ab Screen (Nonreactive) 11/16/17 11/16/17 11/16/17 Range/Units 12:36 16:34 16:35 WBC (4.3-11.1) K/mcL RBC (4.19-5.50) M/mcL Hgb (12.9-16.9) g/dL Hct (37.5-50.1) % MCV (83.0-100.0) fL MCH (28.0-33.3) pg MCHC (31.6-35.5) g/dL RDW (11.5-14.5) % Plt Count (140-400) K/mcL MPV (9.4-12.4) fL Immature Gran % (0-4) % Seg Neutrophils % % Lymphocytes % % Monocytes % % Eosinophils % % Basophils % % Neutrophils # (1.6-8.9) K/mcL Lymphocytes # (0.6-4.6) K/mcL Monocytes # (0.0-1.3) K/mcL Eosinophils # (0.0-0.6) K/mcL Basophils # (0.0-0.2) K/mcL Reactive Lymphocytes (Not Present) Platelet Estimate (Normal) PT 12.8 H (9.4-12.1) Seconds INR 1.1 APTT 32.4 (26.0-36.0) Seconds Sodium (136-145) mEq/L Potassium (3.5-5.1) mEq/L Chloride (98-107) mEq/L Carbon Dioxide (23-29) mEq/L BUN (6-20) mg/dL Creatinine (0.70-1.30) mg/dL Est GFR ( Amer) (> 60) Est GFR (Non-Af Amer) (> 60) BUN/Creatinine Ratio (6-26) Glucose (70-105) mg/dL Calculated Osmolality (280-300) Calcium (8.6-10.3) mg/dL Total Bilirubin 3.1 H (0.3-1.0) mg/dL Direct Bilirubin 2.4 H (0.0-0.2) mg/dL Indirect Bilirubin 0.7 (0.0-1.2) mg/dL AST (13-39) Units/L ALT (7-52) Units/L Alkaline Phosphatase (34-104) Units/L Troponin I (< 0.04) ng/mL Serum Total Protein (6.4-8.9) g/dL Albumin (3.5-5.7) g/dL Globulin (2.4-3.5) g/dL Albumin/Globulin Ratio (1.1-2.2) Lipase (11-82) Units/L Urine Color (Yellow) Urine Clarity (Clear) Urine pH (5.0-8.0) pH Units Ur Specific [place] (1.010-1.025) Urine Protein (Neg-Trace) mg/dL Urine Glucose (UA) (Normal) mg/dL Urine Ketones (Negative) mg/dL Urine Blood (Negative) Urine Nitrite (Negative) Urine Bilirubin (Negative) Urine Urobilinogen (Normal) mg/dL Ur Leukocyte Esterase (Negative) Urine Microscopic RBC (0-3) per hpf Urine Microscopic WBC (0-3) per hpf Ur Squamous Epith Cells (None-Few) per lpf Urine Bacteria (None-Few) per hpf Hyaline Casts (None-Few) per lpf Ur Culture Indicated? (NO) Hepatitis A IgM Ab Reactive H (Nonreactive) Hep Bs Antigen Nonreactive (Nonreactive) Hep B Core IgM Ab Reactive H (Nonreactive) Hepatitis C Ab Screen Nonreactive (Nonreactive) - EKG Data EKG attestation: Yes I reviewed and interpreted this EKG. EKG results narrative: 12:30 Entry rate 80 bpm, [place] interval 150s 8 ms, QRS duration 95 ounces, QT 351 ms, QTC 396 months seconds, normal axis. Sinus rhythm with a ventricular rate of [address] changes on this EKG. Attestation Statement - Attestation Attestation: Patient was seen with resident physician. I reviewed the history, physical, assessment and plan, and agree with the findings. I also personally evaluated this patient and had [id number] time with this patient. 42-year-old male presents emergency Department chief complaint of right upper quadrant abdominal pain and nausea without vomiting. Patient states that he is kind of thrown up in the sauna back down. Started couple days ago. He has been unable to keep foods down. He also has noticed a really dark color in his urine. He has a history of drug abuse. Including crystal meth and heroin. Says he has not used for while. He was actually brought to us by drug rehabilitation facility where he showed up last night. Denies fevers or chills. No chest pain or short of breath. Review systems as above remainder negative. Physical exam vital signs were stable. ENT is unremarkable except for mild jaundice. Heart regular rhythm and rate. Lungs clear. Abdomen is tender in the right upper quadrant minimal guarding no rigidity positive bowel sounds. Extremities unremarkable. Neurologically intact. Skin no rashes. Psych normal. ED course we did discuss possible pain treatment options for him. And unfortunately with the potential for liver failure that exist considering the new onset of jaundice, we were limited to narcotic options which we are trying to avoid. We also treated the patient's nausea. We will get a CT scan full laboratory testing and likely admit the patient for additional care and treatment. Workup revealed hepatitis with liver failure. CT scan supported this finding. We treated the patient with pain management. We contacted the hospitalist service agreed to accept the patient for admission to hospital for treatment for his acute liver failure. Hemodynamically he remained stable. Agree with resident physician assessment and plan.
[2017-11-16] MEDS ORDERED: 0.9 % Sodium Chloride 1,000 ML IVC ONE (12:17)
[2017-11-16] MEDS ORDERED: Ondansetron 4 MG/2 ML VIAL IVP ONE (12:17)
[2017-11-16] MEDS ORDERED: *HR* FentaNYL (PF) 100 MCG/2 ML VIAL IVP ONE (12:17)
[2017-11-16 12:43] LABS: Bilirubin,Urine Moderate (Negative); Blood,Urine Negative (Negative); Clarity,Urine Clear (Clear); Color,Urine Orange (Yellow); Glucose,Urine (UA) Normal (Normal); Ketones,Urine 15 mg/dL (Negative); Leukocyte Esterase,Urine Small (Negative); Nitrite,Urine Positive (Negative); Protein,Urine 30 mg/dL (Neg-Trace); Specific Gravity,Urine > 1.030 (1.010-1.025); Urobilinogen,Urine Normal (Normal)
[2017-11-16 12:47] LABS: Bacteria,Urine None Seen per hpf (None-Few); Hyaline Casts,Urine None Seen per lpf (None-Few); Squamous Epithelial Cell,Urine None Seen per lpf (None-Few); WBC,Urine 0-3 per hpf (0-3)
[2017-11-16 12:49] LABS: Basophils # 0.1 K/mcL (0.0-0.2); Basophils % 1.3 %; Eosinophils % 0.8 %; Hematocrit 45.5 % (37.5-50.1); Hemoglobin 15.4 g/dL (12.9-16.9); Immature Granulocytes % 0.3 % (0-4); Lymphocytes % 52.6 %; Mean Corpuscular HGB Conc 33.8 g/dL (31.6-35.5); Mean Corpuscular Hemoglobin 29.2 pg (28.0-33.3); Mean Corpuscular Volume 86.2 fL (83.0-100.0); Mean Platelet Volume 9.4 fL (9.4-12.4); Monocytes # 0.4 K/mcL (0.0-1.3); Monocytes % 9.5 %; Neutrophils # 1.4 K/mcL (1.6-8.9); Platelet Count 145 K/mcL (140-400); Red Blood Count 5.28 M/mcL (4.19-5.50); Red Cell Distribution Width 14.6 % (11.5-14.5); Segmented Neutrophils % 35.5 %
[2017-11-16 13:14] LABS: Troponin I < 0.03 ng/mL (< 0.04)
[2017-11-16 13:36] LABS: Hepatitis B Surface Antigen Nonreactive (Nonreactive); Hepatitis C Virus Antibody Nonreactive (Nonreactive)
[2017-11-16 13:44] LABS: Platelet Estimate Normal (Normal)
[2017-11-16 13:45] LABS: Reactive Lymphocytes Present (Not Present)
[2017-11-16 13:53] LABS: Alanine Aminotransferase > 500 Units/L (7-52); Albumin/Globulin Ratio 1.3 (1.1-2.2); Alkaline Phosphatase 272 Units/L (34-104); Aspartate Amino Transferase 2361 Units/L (13-39); BUN/Creatinine Ratio 15 (6-26); Bilirubin,Total 3.6 mg/dL (0.3-1.0); Blood Urea Nitrogen 14 mg/dL (6-20); Calcium 8.9 mg/dL (8.6-10.3); Carbon Dioxide 26 mEq/L (23-29); Chloride 103 mEq/L (98-107); Globulin 3.1 g/dL (2.4-3.5); Glucose 133 mg/dL (70-105); Lipase 46 Units/L (11-82); Osmolality,Calculated 284 (280-300); Potassium 4.1 mEq/L (3.5-5.1); Sodium 136 mEq/L (136-145); Total Protein 7.1 g/dL (6.4-8.9); eGFR For Non-African Americans > 60 (> 60)
[2017-11-16 14:12] LABS: Hepatitis A Antibody IgM Reactive (Nonreactive)
[2017-11-16 14:13] LABS: Hepatitis B Core IgM Reactive (Nonreactive)
[2017-11-16] MEDS ORDERED: cefTRIAXone 1,000 MG in Water for inj. (sterile) 20 ML 10 ML IVP ONE (15:14)
[2017-11-16 18:02] LABS: Bilirubin,Direct 2.4 mg/dL (0.0-0.2); Bilirubin,Indirect 0.7 mg/dL (0.0-1.2); Bilirubin,Total 3.1 mg/dL (0.3-1.0)
[2017-11-16 18:05] LABS: INR 1.1; Prothrombin Time 12.8 Seconds (9.4-12.1)
[2017-11-16 18:08] LABS: Activated Partial Thrombo Time 32.4 Seconds (26.0-36.0)
[2017-11-16] MEDS ORDERED: Naloxone 0.4 MG/ML INJ IVP PRN (18:57)
[2017-11-16] MEDS ORDERED: 0.9 % Sodium Chloride 1,000 ML IVC SCH (19:00)
[2017-11-16] MEDS: *HR* OxyCODONE Immed Rel 5 MG TABLET PO PRN (19:40)
--- NOTE | 2017-11-17 00:39 | Internal Med History&Physical ---
Date of Encounter: 11/16/17 Time of Encounter: 21:00 Internal Medicine - H&P: HPI Chief complaint: JAUNDICE Admitted From: Home Plans for Post Hospital Care: Home History of present illness: Mr. Long is a 42 year old male. The patient developed generalized body aching and some weakness 2 days ago. Those are symptoms are subsiding. He has had moderate right upper quadrant abdominal pain with radiation to his right flank since yesterday morning. It is associated with yellow discoloration of his eyes, dark yellow urine and white stools. This patient is tested positive for IgM antibody to hepatitis A and IgM antibody to hepatitis B. He does not recall to have any problems with his liver before. He has been using IV cocaine for about 20 years. He has been using IV methamphetamine for a few years. He claims, that he does not share his needles. He did have unprotected sex with multiple partners recently. Denies alcohol drinking. Review of systems: All 14 organ systems were reviewed by me with the patient. Positive and pertinent negative findings are listed above. The rest of organ systems is negative. Assessment and plan: Acute hepatitis A and acute hepatitis B. It seems to be rather combination. His AST is 2361. His ALT is more than 500. His bilirubin is 3.1. GI diseases is consulted. Will test his CBC and CMP tomorrow morning. IV cocaine/methamphetamine user. Polysubstance abuse. We will consult social media campaign manager. Past Med Surg Social Fam HX - Past Medical History Medical history: no medical history Additional medical history: none Psychiatric history: anxiety, bipolar, depression, prior suicide attempt, previous psychiatric hospitalization - Past Surgical History Additional surgical history: right finger repair with pin - Social History Smoking Status: Current every day smoker Packs per day: 1 Smokeless Tobacco Status: No Alcohol use: none Drug use: cocaine, opiates, methamphetamine - Family History Mother Hx Family Cardiac Disorders: Yes Hx Family Respiratory Disorders: Yes Hx Family Cancer: No Hx Family GI Disorders: No Hx Family Genitourinary Disorders: No Hx Family Endocrine Disorder: Yes Hx Family Musculoskeletal Disorders: No Hx Family Neuromuscular Disorders: No Hx Family Neurologic Disorders: No Hx Family HEENT Disorders: No Hx Family Autoimmune Disorders: No Hx Family Reproductive Disorders: No Hx Family Psychosocial Disorders: No Hx Family Medical Disorders: No Father Living Status: Unknown Internal Medicine - H&P: Meds No Known Home Drugs 11/16/17 [History] 3 Allergy/AdvReac Type Severity Reaction Status Date / Time No Known Allergies Allergy Verified 11/16/17 12:09 All Systems PM: A 10-system review of systems was performed and is negative for pertinent findings except as documented above in the HPI. - Constitutional Vitals: Temp Pulse Resp BP Pulse Ox 98.3 F 79 16 114/78 97 11/16/17 22:58 11/16/17 22:58 11/16/17 22:58 11/16/17 22:58 11/16/17 22:58 General appearance: Present: A&O X 3, no acute distress, answers questions appropriately - Other Additional findings: Skin: Free of rash and discoloration. Eyes: Sclera is yellow. There is no discharge from eyes. ENMT: Oral/pharyngeal mucosa is normal in appearance. There is no discharge from nose or ears. Respiratory: Normal breath sounds with no crackles and wheezes bilaterally. CV: Heart is regular with no gallop or murmur. GI: His abdomen is tender in upper portion of her right upper quadrant; with extension to his right flank. There is no palpable mass or visceromegaly. : There is no tenderness in patient's flanks bilaterally. Neuro exam: He has good strength in upper and lower extremities. He has normal eye movements. Psychiatric: He has normal affect. His thought process is appropriate to the situation. Internal Med - H&P Results - Labs CBC & Chem 7: 11/16/17 12:36 11/16/17 12:36 - Time Spent With Patient Total time spent is greater than 50% in coordination of care (as documented) at patient's floor/unit and/or counseling patient:
[2017-11-17] MEDS: *HR* OxyCODONE Immed Rel 5 MG TABLET PO PRN ×2 (03:34→09:16)
[2017-11-17 06:32] LABS: Basophils % 0.7 %; Eosinophils # 0.1 K/mcL (0.0-0.6); Eosinophils % 2.8 %; Hematocrit 42.2 % (37.5-50.1); Lymphocytes # 1.4 K/mcL (0.6-4.6); Lymphocytes % 48.2 %; Mean Corpuscular HGB Conc 33.2 g/dL (31.6-35.5); Mean Corpuscular Volume 87.6 fL (83.0-100.0); Monocytes # 0.3 K/mcL (0.0-1.3); Monocytes % 12.1 %; Platelet Count 121 K/mcL (140-400); Red Blood Count 4.82 M/mcL (4.19-5.50); Red Cell Distribution Width 14.7 % (11.5-14.5); Segmented Neutrophils % 36.2 %
[2017-11-17 07:22] LABS: Alanine Aminotransferase > 500 Units/L (7-52); Albumin 3.4 g/dL (3.5-5.7); Albumin/Globulin Ratio 1.2 (1.1-2.2); Alkaline Phosphatase 221 Units/L (34-104); Aspartate Amino Transferase 1561 Units/L (13-39); BUN/Creatinine Ratio 10 (6-26); Bilirubin,Total 2.8 mg/dL (0.3-1.0); Blood Urea Nitrogen 9 mg/dL (6-20); Calcium 8.4 mg/dL (8.6-10.3); Carbon Dioxide 26 mEq/L (23-29); Chloride 106 mEq/L (98-107); Globulin 2.8 g/dL (2.4-3.5); Glucose 105 mg/dL (70-105); Magnesium 1.9 mg/dL (1.6-2.6); Osmolality,Calculated 277 (280-300); Potassium 4.5 mEq/L (3.5-5.1); Sodium 134 mEq/L (136-145); Total Protein 6.2 g/dL (6.4-8.9); eGFR For Non-African Americans > 60 (> 60)
[2017-11-17 07:48] LABS: Reactive Lymphocytes Present (Not Present)
[2017-11-17 07:49] LABS: Platelet Estimate Slight Decrease (Normal)
[2017-11-17] MEDS: Nicotine 21 MG PATCH.TD24 TD SCH (10:54)
--- NOTE | 2017-11-17 12:25 | Gastroenterology Consult Note ---
<Oxana Oscar - Last Filed: 11/17/17 16:37> Date of Encounter: 11/17/17 Time of Encounter: 10:00 - Assessment and plan (1) Hepatitis A Current Visit: Yes Status: Acute Assessment and plan: Acute jaundice and abdominal pain. LFTs are improving. Pt was advised precautions to prevent spread. Supportive care. Qualifiers: Hepatic coma status: without hepatic coma Qualified Code(s): B15.9 - Hepatitis A without hepatic coma (2) Hepatitis B Current Visit: Yes Status: Acute Assessment and plan: Hep B igm was positive but surface antigen was negative may be false positive. Will follow in the office with Dr Longo. If develops chronic Hep b, will have to be drug free for 6 months to be considered for treatment. Qualifiers: Viral hepatitis chronicity: unspecified Hepatic coma status: without hepatic coma Hepatitis delta agent presence: without delta-agent Qualified Code(s): B19.10 - Unspecified viral hepatitis B without hepatic coma - Time Spent With Patient Total time spent is greater than 50% in coordination of care (as documented) at patient's floor/unit and/or counseling patient: GI History of Present Illness - Data of Consult Patient: new to practice Consult date: 11/17/17 Requesting Physician: Marvel Overtno - Consult Narrative Reason for consult: Hepatitis A and B History of present illness: Mr. Long is a 42 year old male. He presented with a 2 day history of generalized body aches and weakness, He has had moderate right upper quadrant abdominal pain with radiation to his right flank, associated with yellow discoloration of his eyes, dark yellow urine and white stools. This patient is tested positive for IgM antibody to hepatitis A and IgM antibody to hepatitis B. He does not recall to have any problems with his liver before. He has been using IV cocaine for about 20 years. He has been using IV methamphetamine for a few years. He claims, that he does not share his needles. He did have unprotected sex with multiple partners recently. Denies alcohol drinking. on admission t bili was 3.1 has decreased to 2.8. He has some tenderness in his epigastric area but denies any abdominal pain, nausea, vomiting, diarrhea, bloody or tarry stools. He denies previous EGD or colonoscopy. Past Med Surg Social Fam HX - Past Medical History Medical history: no medical history Additional medical history: none Psychiatric history: anxiety, bipolar, depression, prior suicide attempt, previous psychiatric hospitalization - Past Surgical History Additional surgical history: right finger repair with pin - Social History Smoking Status: Current every day smoker Packs per day: 1 Smokeless Tobacco Status: No Alcohol use: none Drug use: cocaine, opiates, methamphetamine - Family History Mother Hx Family Cardiac Disorders: Yes Hx Family Respiratory Disorders: Yes Hx Family Cancer: No Hx Family GI Disorders: No Hx Family Genitourinary Disorders: No Hx Family Endocrine Disorder: Yes Hx Family Musculoskeletal Disorders: No Hx Family Neuromuscular Disorders: No Hx Family Neurologic Disorders: No Hx Family HEENT Disorders: No Hx Family Autoimmune Disorders: No Hx Family Reproductive Disorders: No Hx Family Psychosocial Disorders: No Hx Family Medical Disorders: No Father Living Status: Unknown Review of Systems: GI: as per [place] GENERAL: denies fever, has some chills EYES: yellow discoloration ENT: denies pain with swallowing or difficulty swallowing CARDIO: denies chest pain, palpitations RESP: No Shortness of breath with exertion : dark urine NEURO: denies any weakness HEME: Denies any bruising MS: denies joint pain, joint swelling or back pain. DERM: denies rash or itching PSYCH: Denies history of anxiety or depression - Constitutional Vitals: Temp Pulse Resp BP Pulse Ox 98.2 F 54 18 102/65 99 11/17/17 12:11 11/17/17 12:11 11/17/17 12:11 11/17/17 12:11 11/17/17 12:11 Exam: CONSTITUTIONAL:~alert, no acute distress.~HEAD:~normocephalic.~EYES:~jaundice.~ NECK:~no obvious swelling.~HEART:~regular rate and rhythm, no murmurs.~LUNGS:~ bilateral good air entry.~ABDOMEN:~non distended, soft, tender to epigastric area, no masses palpable, no organomegaly.~RECTAL EXAM:~Deferred.~EXTREMITIES:~ no clubbing, cyanosis or edema.~SKIN:~no stigmata of chronic liver disease.~ NEUROLOGIC:~no obvious focal defect.~~~~ Results - Labs CBC & Chem 7: 11/17/17 05:57 11/17/17 05:57 Labs: Last Result Calcium 8.4 mg/dL (8.6-10.3) L 11/17/17 05:57 Troponin I < 0.03 ng/mL (< 0.04) 11/16/17 12:36 Entire Visit Hgb 14.0 g/dL (12.9-16.9) 11/17/17 05:57 Hct 42.2 % (37.5-50.1) 11/17/17 05:57 PT 12.8 Seconds (9.4-12.1) H 11/16/17 16:34 Total Bilirubin 2.8 mg/dL (0.3-1.0) H 11/17/17 05:57 AST 1561 Units/L (13-39) H 11/17/17 05:57 ALT > 500 Units/L (7-52) H 11/17/17 05:57 Lipase 46 Units/L (11-82) 11/16/17 12:36 - ABG ABG results: PT/INR, D-dimer PT 12.8 Seconds (9.4-12.1) H 11/16/17 16:34 Consult Discharge Plan - Plan Referrals: NONE,PCP [Primary Care Provider] - <Tobi Longo - Last Filed: 11/17/17 17:37> Date of Encounter: 11/17/17 Time of Encounter: 17:00 - Time Spent With Patient Total time spent is greater than 50% in coordination of care (as documented) at patient's floor/unit and/or counseling patient: GI History of Present Illness - Data of Consult Requesting Physician: Marvel Overton - Consult Narrative History of present illness: Mr. Long is a 42 year old male - Constitutional Vitals: Temp Pulse Resp BP Pulse Ox 98.3 F 68 18 116/74 97 11/17/17 15:46 11/17/17 15:46 11/17/17 15:46 11/17/17 15:46 11/17/17 15:46 Results - Labs CBC & Chem 7: 11/17/17 05:57 11/17/17 05:57 Labs: Last Result Calcium 8.4 mg/dL (8.6-10.3) L 11/17/17 05:57 Troponin I < 0.03 ng/mL (< 0.04) 11/16/17 12:36 Entire Visit Hgb 14.0 g/dL (12.9-16.9) 11/17/17 05:57 Hct 42.2 % (37.5-50.1) 11/17/17 05:57 PT 12.8 Seconds (9.4-12.1) H 11/16/17 16:34 Total Bilirubin 2.8 mg/dL (0.3-1.0) H 11/17/17 05:57 AST 1561 Units/L (13-39) H 11/17/17 05:57 ALT > 500 Units/L (7-52) H 11/17/17 05:57 Lipase 46 Units/L (11-82) 11/16/17 12:36 - ABG ABG results: PT/INR, D-dimer PT 12.8 Seconds (9.4-12.1) H 11/16/17 16:34 - Attending Attestation I have personally performed a face to face evaluation on this patient. I have reviewed and agree with the care plan. History and Exam by me shows: Patient seen. Patient with the abnormal LFTs due to acute hepatitis A. Doubt Has hepatitis B as his surface antigen is negative. Rec: Symptomatic treatment. Follow-Up with the ID Outpatient.
--- NOTE | 2017-11-17 12:52 | Infectious Disease Consult ---
Date of Encounter: 11/17/17 Time of Encounter: 12:50 Assessment and Plan (1) Hepatitis A Status: Acute Assessment and plan: Symptoms started 2 days ago Anticipate the AST/ALT and billirubin to continue to get elevated at this point the only treatment is symptomatic treatment. will continue to trend LFT's requires standard precautions with unshared bathroom OK do d/c once okay with the hospitalist team Qualifiers: Hepatic coma status: without hepatic coma Qualified Code(s): B15.9 - Hepatitis A without hepatic coma (2) Methamphetamine abuse Status: Acute (3) Heroin abuse Status: Acute (4) IVDU (intravenous drug user) Status: Acute Assessment and plan: Will check hepatitis B surface Ab Check HIV status, patient agreeable planning to go to rehab in [place] (5) Asymptomatic bacteriuria Status: Acute Assessment and plan: may d/c rocephin (6) High risk sexual behavior Status: Acute Assessment and plan: patient only has sex with women high risk sexual practices and not using protection all the time check HIV status Qualifiers: High risk sexual behavior type: heterosexual Qualified Code(s): Z72.51 - High risk heterosexual behavior (7) Cocaine addiction Status: Acute Qualifiers: Substance use status: with intoxication Complication of substance-induced condition: with perceptual disturbance Qualified Code(s): F14.222 - Cocaine dependence with intoxication with perceptual disturbance (8) Leukopenia Status: Acute Assessment and plan: ANC 1000 Qualifiers: Leukopenia type: neutropenia Neutropenia type: due to infection Qualified Code(s): D70.3 - Neutropenia due to infection Infectious Disease HPI - Data of Consult Patient: new to practice Consult date: 11/17/17 Requesting Physician: Marvel Overton Primary Care Provider: PCP NONE - Consult Narrative Reason for consult: Hepatitis History of present illness: Mr. Long is a 42 year old male Patient is a 42-year-old gentleman with no past medical history that he knows of , presented to [facility] on 11/16/2017 with abdominal pain, consulted today on 11/17 for hepatitis A Patient is a 42-year-old gentleman who is currently living with his and planning to go to rehabilitation who has no past medical history that he knows of and denies any history of infections including HIV, hepatitis or TB presented to [facility] with abdominal pain. Patient tells me that Tuesday morning he woke up when he was having right upper quadrant pain, feeling very ill, having nausea but no vomiting. Patient states the abdominal pain was right upper quadrant radiating to the back on both sides. Patient denied any diarrhea but he said his stool was today like an almost white in color. Patient also noted that his urine was very dark. Patient did have fevers and chills and he told me that he had no energy to do anything. Patient symptoms worsened on Tuesday so it is decided to come to the emergency department for evaluation. Patient denies any headache, denied any URI symptoms, denied any chest pain or shortness of breath. Patient denied any urinary symptoms. No skin lesions or joint pain. Since admission, patient has been afebrile. Heart rate was 92, no tachypnea and hemodynamically stable. Presenting labs revealed a WBC of 3.8 thousand with lymphocytes at 53%. No bands. INR was 1.1 and urine creatinine were 14 and 0.96 respectively. Patients total bilirubin was 3.1 and direct bilirubin was 2.4. AST was 2300 and ALT was over 500. Urinalysis revealed no pyuria but positive nitrites and small leukocyte esterase. Acute hepatitis panel revealed positive hepatitis A IgM and positive hepatitis B core IgM antibody. Hepatitis C antibody screen was negative. CT of the abdomen/pelvis revealed There is free fluid in the right upper quadrant in the diego hepatis extending along side the duodenum and also to the gallbladder. Also of note is some periportal edema. Differentials would include hepatitis, duodenal ulcer disease or less favored to cholecystitis. No gallstones are appreciated. We were asked to evaluate the patient and make further recommendations. Clinically patient appears comfortable nontoxic in clinic in bed. Denies any specific complaints at the moment. Patient does not appear frankly jaundiced. Has good appetite. No diarrhea. Abdominal pain is not impressive. CC: Marvel Overton Past Med Surg Social Fam HX - Past Medical History Medical history: no medical history Additional medical history: none Psychiatric history: anxiety, bipolar, depression, prior suicide attempt, previous psychiatric hospitalization - Past Surgical History Additional surgical history: right finger repair with pin - Social History Smoking Status: Current every day smoker Packs per day: 1 Smokeless Tobacco Status: No Alcohol use: none Drug use: cocaine, opiates, methamphetamine - Family History Mother Hx Family Cardiac Disorders: Yes Hx Family Respiratory Disorders: Yes Hx Family Cancer: No Hx Family GI Disorders: No Hx Family Genitourinary Disorders: No Hx Family Endocrine Disorder: Yes Hx Family Musculoskeletal Disorders: No Hx Family Neuromuscular Disorders: No Hx Family Neurologic Disorders: No Hx Family HEENT Disorders: No Hx Family Autoimmune Disorders: No Hx Family Reproductive Disorders: No Hx Family Psychosocial Disorders: No Hx Family Medical Disorders: No Father Living Status: Unknown Infectious Disease-CN:Meds No Known Home Drugs 11/16/17 [History] 3 Allergy/AdvReac Type Severity Reaction Status Date / Time No Known Allergies Allergy Verified 11/16/17 12:09 Review of systems: 10 point ROS done, negative other for what's mentioned in the HPI Exam - Constitutional Vitals: Temp Pulse Resp BP Pulse Ox 98.2 F 54 18 102/65 99 11/17/17 12:11 11/17/17 12:11 11/17/17 12:11 11/17/17 12:11 11/17/17 12:11 General appearance: cooperative, no acute distress, no febrile - Head Head exam: Present: atraumatic, normocephalic - Eye Eye exam: Present: EOMI, PERRL, scleral icterus Additional comments: very mildly - ENT ENT exam: Present: mucous membranes dry Additional comments: has a tongue piercing - Neck Neck exam: Present: full ROM. Absent: meningismus - Respiratory Respiratory exam: Present: CTAB. Absent: rhonchi, wheezes - Cardiovascular Cardiovascular exam: Present: bradycardia, RRR, +S1, +S2 - GI/Abdominal GI/Abdominal exam: Present: normal bowel sounds, soft, tenderness (r) Additional comments: RUQ - Extremities Exam Extremities exam: Present: calf tenderness, full ROM. Absent: joint swelling - Back Exam Back exam: Absent: CVA tenderness (L), CVA tenderness (R) - Neurological Exam Neurological exam: Present: alert, oriented X3, no focal deficits - Psychiatric Psychiatric exam: Present: normal affect, normal mood - Skin Skin exam: Present: normal color. Absent: rash Infectious Disease CN: Results - Labs CBC & Chem 7: 11/17/17 05:57 11/17/17 05:57 Cultures: Cultures 11/16/17 17:23 Blood Culture - Preliminary Peripheral Venipuncture Culture is incubating and being continuously monitored for growth. Final report to follow. 11/16/17 17:28 Blood Culture - Preliminary Peripheral Venipuncture Culture is incubating and being continuously monitored for growth. Final report to follow. Consult Discharge Plan - Plan Referrals: NONE,PCP [Primary Care Provider] -
--- NOTE | 2017-11-17 15:47 | Internal Med Progress Note ---
Hospitalist Progress Note - Encounter Date of Encounter: 11/17/17 Time of Encounter: 11:10 - Subjective Interval History: Patient was seen and assessed at bedside 11:10 AM. He is alert, awake, oriented. He denies abdominal pain, states that he is just tired. He denies nausea, vomiting, diarrhea, abdominal pain, chest pain or shortness of breath. He denies any peripheral edema, headache, dizziness, vision changes. - Exam Vitals: Temp Pulse Resp BP Pulse Ox 98.2 F 54 18 102/65 99 11/17/17 12:11 11/17/17 12:11 11/17/17 12:11 11/17/17 12:11 11/17/17 12:11 Exam: General: Pt resting quietly on bed, no distress. Skin: Jaundiced, wd, no rashes, lesions, redness Neurological: Pt is alert and awake, oriented x 3, Speech is clear, PERRLA, EOMI , no nystagmus, no pronator drift. strength equal x 4 extremities HEENT: mucous mumbranes moist, no conjuctival pallor, sclera jaundiced Neck: supple, no tracheal deviation, no lymphadenopathy, tenderness, no thyromegaly Heart: S1S2 heard without gallops, clicks, murmurs, no bradycardia or tachycardia, pt has no peripheral edema, pedal and radial pulses palpable bilaterally. Lungs: clear throughout without wheezing, rales, or ronchi, respirations are unlabored Abdomen: soft and non tender with bowel sound present, no hepatomegaly Psych: Normal affect with good eye contact - Assessment and Plan (1) Hepatitis A Current Visit: Yes Status: Acute Assessment and Plan: Hepatitis IgM positive. Patient has been evaluated by both GI and infectious disease. At this point just treat symptoms. Patient is to have standard precautions with unshared bathroom. Per infectious disease: Anticipate AST/T bilirubin will continue to elevate, continue to trend LFTs. Continue gentle IV fluid hydration Monitor labs overnight Possibly prepare for discharge tomorrow. (2) Hepatitis B Current Visit: Yes Status: Acute Assessment and Plan: Plan as above. (3) High risk sexual behavior Current Visit: Yes Status: Acute Assessment and Plan: Patient reports multiple sexual partners and unprotected sex over the last 2-3 years. Patient reports he only has sex with women. HIV labs have been ordered by infectious disease Continue to encourage protected sex (4) IVDU (intravenous drug user) Current Visit: Yes Status: Acute Assessment and Plan: Patient admits to cocaine and methamphetamine use. He states that he never shares needles. HIV testing has been ordered by infectious disease. (5) Leukopenia Current Visit: Yes Status: Acute Assessment and Plan: Neutrophilia, ANC 1.0. Treat symptoms of viral illness. (6) Methamphetamine abuse Current Visit: Yes Status: Acute (7) Cocaine addiction Current Visit: No Status: Chronic DVT Prophylaxis: Patient is ambulatory, SCDs are also ordered. - Time Spent with Patient Total time spent is greater than 50% in coordination of care (as documented) at patient's floor/unit and/or counseling patient: less than 15 minutes Plan of Care Discussed with: patient Internal Medicine: Result - Labs CBC & Chem 7: 11/17/17 05:57 11/17/17 05:57 Labs: Short CBC 11/17/17 Range/Units 05:57 WBC 2.8 L (4.3-11.1) K/mcL Hgb 14.0 (12.9-16.9) g/dL Hct 42.2 (37.5-50.1) % Plt Count 121 L (140-400) K/mcL Neutrophils # 1.0 L (1.6-8.9) K/mcL BMP 11/17/17 05:57 Sodium 134 L Potassium 4.5 Chloride 106 Carbon Dioxide 26 BUN 9 Creatinine 0.86 Glucose 105 Calcium 8.4 L Liver Function 11/17/17 Range/Units 05:57 Total Bilirubin 2.8 H (0.3-1.0) mg/dL AST 1561 H (13-39) Units/L ALT > 500 H (7-52) Units/L Alkaline Phosphatase 221 H (34-104) Units/L Albumin 3.4 L (3.5-5.7) g/dL - ABG Interpretation ABG results: PT/INR, D-dimer PT 12.8 Seconds (9.4-12.1) H 11/16/17 16:34 Consult Discharge Plan - Plan Referrals: NONE,PCP [Primary Care Provider] - (1) Hepatitis A Qualifiers: Hepatic coma status: without hepatic coma Qualified Code(s): B15.9 - Hepatitis A without hepatic coma (2) Hepatitis B Qualifiers: Viral hepatitis chronicity: unspecified Hepatic coma status: without hepatic coma Hepatitis delta agent presence: without delta-agent Qualified Code(s): B19.10 - Unspecified viral hepatitis B without hepatic coma (3) High risk sexual behavior Qualifiers: High risk sexual behavior type: heterosexual Qualified Code(s): Z72.51 - High risk heterosexual behavior (5) Leukopenia Qualifiers: Leukopenia type: neutropenia Neutropenia type: due to infection Qualified Code(s): D70.3 - Neutropenia due to infection (7) Cocaine addiction Qualifiers: Substance use status: with intoxication Complication of substance-induced condition: with perceptual disturbance Qualified Code(s): F14.222 - Cocaine dependence with intoxication with perceptual disturbance
--- NOTE | 2017-11-17 21:21 | Electrocardiograph Report ---
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
[2017-11-18 02:54] LABS: HIV-1&2 Antibody & p24 Ag Nonreactive (Nonreactive)
[2017-11-18 03:30] LABS: Hepatitis B Surface Antibody 2425.95 mIU/mL
[2017-11-18 05:04] LABS: Basophils # 0.1 K/mcL (0.0-0.2); Basophils % 1.5 %; Hematocrit 46.5 % (37.5-50.1); Lymphocytes # 1.9 K/mcL (0.6-4.6); Lymphocytes % 45.7 %; Mean Corpuscular Hemoglobin 29.4 pg (28.0-33.3); Mean Corpuscular Volume 86.4 fL (83.0-100.0); Mean Platelet Volume 10.1 fL (9.4-12.4); Monocytes # 0.4 K/mcL (0.0-1.3); Monocytes % 8.8 %; Neutrophils # 1.8 K/mcL (1.6-8.9); Platelet Count 169 K/mcL (140-400); Red Blood Count 5.38 M/mcL (4.19-5.50)
[2017-11-18 05:13] LABS: Hemoglobin 15.8 g/dL (12.9-16.9)
[2017-11-18 05:25] LABS: BUN/Creatinine Ratio 11 (6-26); Blood Urea Nitrogen 9 mg/dL (6-20); Calcium 8.9 mg/dL (8.6-10.3); Carbon Dioxide 26 mEq/L (23-29); Chloride 106 mEq/L (98-107); Glucose 122 mg/dL (70-105); Osmolality,Calculated 284 (280-300); Potassium 4.3 mEq/L (3.5-5.1); Sodium 137 mEq/L (136-145); eGFR For Non-African Americans > 60 (> 60)
[2017-11-18 05:38] LABS: Platelet Estimate Normal (Normal)
[2017-11-18 05:39] LABS: Reactive Lymphocytes Present (Not Present)
[2017-11-18 09:37] LABS: Alanine Aminotransferase > 500 Units/L (7-52); Albumin 3.6 g/dL (3.5-5.7); Albumin/Globulin Ratio 1.2 (1.1-2.2); Alkaline Phosphatase 254 Units/L (34-104); Aspartate Amino Transferase 1222 Units/L (13-39); Bilirubin,Direct 2.7 mg/dL (0.0-0.2); Bilirubin,Total 3.7 mg/dL (0.3-1.0); Globulin 2.9 g/dL (2.4-3.5); Total Protein 6.5 g/dL (6.4-8.9)
[2017-11-18] MEDS: Nicotine 21 MG PATCH.TD24 TD SCH (09:56)
[2017-11-18 11:14] VITALS: BP 112/67
--- NOTE | 2017-11-18 11:31 | Infectious Disease Progress No ---
Date of Encounter: 11/18/17 Time of Encounter: 11:29 - Assessment and Plan (1) Leukopenia Current Visit: Yes Status: Acute Likely secondary to acute Hep A infection. Improved. Continue to trend. Qualifiers: Leukopenia type: neutropenia Neutropenia type: due to infection Qualified Code(s): D70.3 - Neutropenia due to infection (2) Hepatitis A Current Visit: Yes Status: Acute LFTs stable. T bili up to 3.7, AST 1222, ALT >500, AP 254. Clinically improved. Continue supportive care. Qualifiers: Hepatic coma status: without hepatic coma Qualified Code(s): B15.9 - Hepatitis A without hepatic coma (3) Asymptomatic bacteriuria Current Visit: Yes Status: Acute Urine culture negative. No further treatment required. (4) Methamphetamine abuse Current Visit: Yes Status: Acute (5) IVDU (intravenous drug user) Current Visit: Yes Status: Acute HIV negative. Hep C negative. (6) High risk sexual behavior Current Visit: Yes Status: Acute Reports unsafe sex practices with multiple women. Qualifiers: High risk sexual behavior type: heterosexual Qualified Code(s): Z72.51 - High risk heterosexual behavior - Subjective Interval history: Patient seen and examined. No acute events noted overnight. Patient states overall he feels better today. Denies fever, chills, or rigors. Denies chest pain, shortness of breath, or cough. Denies nausea, vomiting, or diarrhea. Denies abdominal pain, urinary complaints, or appetite changes. Denies oral thrush or skin lesions. Infect Dis PN-Objective Data - Labs CBC & Chem 7: 11/18/17 04:10 11/18/17 04:10 Labs: Laboratory Results - last 24 hr 11/17/17 11/18/17 11/18/17 14:37 04:10 04:10 WBC 4.1 L RBC 5.38 Hgb 15.8 D Hct 46.5 MCV 86.4 MCH 29.4 MCHC 34.0 RDW 15.0 H Plt Count 169 MPV 10.1 Immature Gran % 0.0 Seg Neutrophils % 43.0 Lymphocytes % 45.7 Monocytes % 8.8 Eosinophils % 1.0 Basophils % 1.5 Neutrophils # 1.8 Lymphocytes # 1.9 Monocytes # 0.4 Eosinophils # 0.0 Basophils # 0.1 Reactive Lymphocytes Present A Platelet Estimate Normal Sodium 137 Potassium 4.3 Chloride 106 Carbon Dioxide 26 BUN 9 Creatinine 0.84 Est GFR ( Amer) > 60 Est GFR (Non-Af Amer) > 60 BUN/Creatinine Ratio 11 Glucose 122 H Calculated Osmolality 284 Calcium 8.9 Total Bilirubin 3.7 H Direct Bilirubin 2.7 H Indirect Bilirubin 1.0 AST 1222 H ALT > 500 H Alkaline Phosphatase 254 H Serum Total Protein 6.5 Albumin 3.6 Globulin 2.9 Albumin/Globulin Ratio 1.2 Hep Bs Antibody 2425.95 HIV Ag/Ab Combo Qual Nonreactive Cultures: Cultures 11/16/17 17:23 Blood Culture - Preliminary Peripheral Venipuncture Culture is incubating and being continuously monitored for growth. Final report to follow. 11/16/17 17:28 Blood Culture - Preliminary Peripheral Venipuncture Culture is incubating and being continuously monitored for growth. Final report to follow. Serology 11/17/17 Range/Units 14:37 Hep Bs Antibody 2425.95 mIU/mL HIV Ag/Ab Combo Qual Nonreactive (Nonreactive) Exam - Constitutional Vitals: Temp Pulse Resp BP Pulse Ox 98.2 F 67 18 112/67 98 11/18/17 11:13 11/18/17 11:13 11/18/17 11:13 11/18/17 11:13 11/18/17 11:13 General appearance: average body habitus, cooperative, no acute distress - Head Head exam: Present: atraumatic, normal inspection, normocephalic - Eye Eye exam: Present: EOMI, normal appearance, PERRL. Absent: scleral icterus Pupils: Present: normal accommodation - ENT ENT exam: Present: mucous membranes moist - Neck Neck exam: Present: normal inspection - Respiratory Respiratory exam: Present: CTAB. Absent: rales, respiratory distress, rhonchi, wheezes - Cardiovascular Cardiovascular exam: Present: RRR, +S1, +S2 - GI/Abdominal GI/Abdominal exam: Present: normal bowel sounds, soft, tenderness (RUQ, epigastric). Absent: distended - Extremities Exam Extremities exam: Present: normal inspection. Absent: joint swelling, pedal edema, tenderness - Neurological Exam Neurological exam: Present: alert, oriented X3, no focal deficits - Psychiatric Psychiatric exam: Present: normal affect, normal mood - Skin Skin exam: Present: dry, intact, normal color, warm Consult Discharge Plan - Plan Referrals: NONE,PCP [Primary Care Provider] -
--- NOTE | 2017-11-18 12:46 | Discharge Summary ---
- NOTES TO OUTPATIENT PROVIDER Notes to Outpatient Provider: Hepatitis A positive, Hepatitis B in antibodies present. Elevated transaminases, please monitor and follow closely Date of Encounter: 11/18/17 Time of Encounter: 09:35 - Discharge Diagnosis (1) Hepatitis A Priority: Primary Status: Acute Assessment and Plan: Symptomatic treatment. Standard precautions with unsure bathroom for one month. Total bilirubin 3.7. AST is 1222, ALT> 500 Patient will need close follow-up with primary care, we are working on getting him into the resident clinic. Qualifiers: Hepatic coma status: without hepatic coma Qualified Code(s): B15.9 - Hepatitis A without hepatic coma (2) Hepatitis B Priority: Secondary Status: Acute Assessment and Plan: Antibodies present, prior illness. Patient denied discussed at length his need for risk factor modification including not having unprotected sex with multiple partners and abstinence from IV drug use. Patient verbalizes understanding, however states that since he does not currently have the disease he cannot pass it on and does not need to currently modify risk factors. Qualifiers: Viral hepatitis chronicity: unspecified Hepatic coma status: without hepatic coma Hepatitis delta agent presence: without delta-agent Qualified Code(s): B19.10 - Unspecified viral hepatitis B without hepatic coma (3) High risk sexual behavior Priority: Secondary Status: Chronic Assessment and Plan: Patient reports multiple sexual partners and unprotected sex over the last 2-3 years. Patient reports he only has sex with women. HIV negative Continue to encourage protected sex Qualifiers: High risk sexual behavior type: heterosexual Qualified Code(s): Z72.51 - High risk heterosexual behavior (4) IVDU (intravenous drug user) Priority: Secondary Status: Acute Assessment and Plan: Patient admits to IV cocaine and methamphetamine use. He states that he never shares needles. Discussed risk factor modification, pt verbalized understanding. (5) Leukopenia Priority: Secondary Status: Acute Assessment and Plan: Improving. 4.1 today, 4.3 normal. Likely due to hepatitis A infection. Follow with PCP. Qualifiers: Leukopenia type: neutropenia Neutropenia type: due to infection Qualified Code(s): D70.3 - Neutropenia due to infection (6) Methamphetamine abuse Priority: Secondary Status: Chronic Assessment and Plan: Patient with admitted IV methamphetamine use. He is currently residing in a treatment facility. He will be able to return there on discharge. (7) Cocaine addiction Priority: Secondary Status: Chronic Assessment and Plan: Patient missed IV cocaine use. Qualifiers: Substance use status: with intoxication Complication of substance-induced condition: with perceptual disturbance Qualified Code(s): F14.222 - Cocaine dependence with intoxication with perceptual disturbance Hospital course: Mr. Long is a 42 year old male with past medical of IV drug use, depression, overdose, opioid addiction, suicidal ideation, cocaine addiction, heroin abuse, methamphetamine abuse, high risk sexual behavior. She presents emergency department with jaundice, flank pain, body aches. Patient with elevated transaminases, leukopenia. Patient found to have hepatitis A prior hepatitis B. HIV is negative. He was evaluated by infectious disease, we will treat symptoms. Patient and I had a lengthy discussion regarding his high risk behaviors, it appears that he feels that he does not have hepatitis B currently , that he does not have to be as careful. Labs are improving, patient will follow up with the resident clinic after discharge for follow-up. Patient lives in an inpatient residential rehabilitation facility, he recently has been homeless. She will be discharged in stable condition. Discharge discussed with: patient - Time Spent with Patient Total time spent providing and/or coordinating discharge services: Less than 30 minutes - Discharge Medications Home Medications: No Known Home Drugs 11/16/17 [History] Allergies/Adverse Reactions: 3 Allergy/AdvReac Type Severity Reaction Status Date / Time No Known Allergies Allergy Verified 11/16/17 12:09 Date of admission: 11/16/17 16:42 Primary care physician: PCP NONE Consults: 11/16/17 18:40 Consult to Box Machine Operator [CONS] Routine Reason for SW Consult: patient currently in recovery program. 11/17/17 11:26 Consult to Infectious Diseases [CONS] Routine Consulting Provider: Infectious Disease Eva Reason for Consult: Hepatitis A and B IgM reactive. Pt with jaundice, fatigue , multiple sexual partners, IVD use. Time Notified: 11:27 Call Completed: Yes Discharging clinician: Didi Abdi Anticipated date of discharge: 11/18/17 - Constitutional Vitals: Temp Pulse Resp BP Pulse Ox 98.2 F 67 18 112/67 98 11/18/17 11:13 11/18/17 11:13 11/18/17 11:13 11/18/17 11:13 11/18/17 11:13 General appearance: Present: cooperative, A&O X 3, pleasant, no acute distress, answers questions appropriately - Head Head exam: Present: atraumatic, normal inspection, normocephalic - Eye Eye exam: Present: normal appearance, conjuntiva pink, sclera anicteric - Neck Neck exam general surgery: Present: supple, trachea midline. Absent: lymphadenopathy, tenderness - Respiratory Respiratory exam: Present: CTAB. Absent: accessory muscle use, chest wall tenderness, decreased breath sounds, rales, respiratory distress, rhonchi, wheezes - Cardiovascular Cardiovascular exam: Present: RRR, +S1, +S2. Absent: diastolic murmur, gallop, rubs, systolic murmur - GI/Abdominal GI/Abdominal exam: Present: normal bowel sounds, soft. Absent: distended, hepatomegaly, tenderness - Extremities Exam Extremities exam: Present: normal capillary refill, normal inspection, warm, radial pulses palpable and symmetrical. Absent: calf tenderness, cyanotic, pedal edema, tenderness - Neurological Exam Neurological exam: Present: alert, oriented X3, no focal deficits. Absent: facial droop, speech deficit - Skin Skin exam: Present: dry, intact, normal color, warm. Absent: rash - Patient Status Disposition: Home, Self-Care Condition: Good Functional capacity at discharge: independent ambulation Overall status at discharge: patient is progressing back to baseline - Discharge Instructions Follow Up With: NONE,PCP [Primary Care Provider] - Additional Instructions: Follow up with your new doctor, Dahlia Sánchez, on 11/25 at 11:00 a.m. Take your medications as directed. Return to the ER as needed for any other problems or concerns, or if your symptoms return or worsen. Resume your normal medications and return to your normal diet and activties as tolerated. Stop using IV drugs and stop having unprotected sex with multiple partners. - Diet and Activity Activity: increase activity as tolerated Diet: advance to your usual diet
== END 2017-11-18 14:35 | disposition home or self-care (01) ==
LOC: 3BNU 12:05 → EMEROO 12:05 → 3BNU 18:00
PROVIDERS: ADMIT Internal Medicine; ATTEND Internal Medicine

== ENCOUNTER 2020-07-28 02:50 | Observation (INO) ==
[2020-07-28 03:48] LABS: Basophils # 0.1 K/mcL (0.0-0.2); Basophils % 0.3 %; Eosinophils % 0.1 %; Hematocrit 43.7 % (37.5-50.1); Hemoglobin 14.7 g/dL (12.9-16.9); Immature Granulocytes % 0.4 % (0-4); Lymphocytes # 1.1 K/mcL (0.6-4.6); Lymphocytes % 5.9 %; Mean Corpuscular HGB Conc 33.6 g/dL (31.6-35.5); Mean Corpuscular Hemoglobin 30.9 pg (28.0-33.3); Mean Platelet Volume 8.8 fL (9.4-12.4); Monocytes # 0.8 K/mcL (0.0-1.3); Monocytes % 4.5 %; Neutrophils # 16.5 K/mcL (1.6-8.9); Platelet Count 250 K/mcL (140-400); Red Blood Count 4.75 M/mcL (4.19-5.50); Red Cell Distribution Width 12.9 % (11.5-14.5); Segmented Neutrophils % 88.8 %; White Blood Count 18.6 K/mcL (4.3-11.1)
[2020-07-28 04:13] LABS: BUN/Creatinine Ratio 15 (6-26); Blood Urea Nitrogen 17 mg/dL (6-20); Calcium 9.2 mg/dL (8.6-10.3); Carbon Dioxide 22 mEq/L (23-29); Chloride 105 mEq/L (98-107); Glucose 101 mg/dL (70-105); Osmolality,Calculated 284 (280-300); Potassium 3.6 mEq/L (3.5-5.1); Sodium 136 mEq/L (136-145); eGFR For African Americans > 60 (> 60); eGFR For Non-African Americans > 60 (> 60)
[2020-07-28] MEDS ORDERED: Isovue-370 500 ML BOTTLE IVP ONE (04:18)
[2020-07-28 04:48] LABS: Troponin I 0.18 ng/mL (< 0.04)
[2020-07-28] MEDS ORDERED: Azithromycin 500 MG in 0.9 % Sodium Chloride 250 ML IVPB ONE (05:07)
[2020-07-28] MEDS ORDERED: cefTRIAXone 1,000 MG in 0.9 % Sodium Chloride Mini Bag 100 ML IVPB ONE (05:07)
[2020-07-28] MEDS ORDERED: Acetaminophen 325 MG TABLET PO PRN (05:58)
[2020-07-28] MEDS ORDERED: Naloxone 0.4 MG/ML INJ IVP PRN (05:58)
[2020-07-28] MEDS ORDERED: Ondansetron 4 MG/2 ML VIAL IVP PRN (05:58)
[2020-07-28] MEDS ORDERED: Ipratropium/Albuterol Neb 3 ML IH PRN (06:00)
[2020-07-28] MEDS ORDERED: cefTRIAXone 1,000 MG in Water for inj. (sterile) 10 ML IVPB ONE (06:00)
[2020-07-28] MEDS ORDERED: Perflutren Lipid Microsphere 1.3 ML in 0.9 % Sodium Chloride 8.7 ML IVP PRN (06:00)
[2020-07-28] MEDS ORDERED: Aspirin 325 MG TABLET PO ONE (07:32)
[2020-07-28] MEDS: 0.9 % Sodium Chloride 1,000 ML IVC SCH ×2 (07:41→17:49)
[2020-07-28 08:21] LABS: Alanine Aminotransferase 30 Units/L (7-52); Albumin 4.4 g/dL (3.5-5.7); Albumin/Globulin Ratio 1.6 (1.1-2.2); Alkaline Phosphatase 74 Units/L (34-104); Aspartate Amino Transferase 50 Units/L (13-39); Bilirubin,Indirect 0.5 mg/dL (0.0-1.0); Bilirubin,Total 0.5 mg/dL (0.3-1.0); Chol/HDL Ratio 4.5 (0-4.9); Cholesterol 185 mg/dL (< 200); Globulin 2.7 g/dL (2.4-3.5); HDL Cholesterol 41 mg/dL (40-59); LDL Cholesterol,Calculated 126 mg/dL (< 100); Thyroid Stimulating Hormone 1.825 mcIU/mL (0.340-5.600); Total Protein 7.1 g/dL (6.4-8.9); Triglycerides 90 mg/dL (< 150)
[2020-07-28] MEDS ORDERED: *HR* Heparin 5,000 UNIT/ML VIAL IVP ONE (10:06)
[2020-07-28] MEDS ORDERED: *HR* Heparin 5,000 UNIT/ML VIAL IVP PRN ×2 (10:06)
[2020-07-28 10:14] LABS: Adenovirus Not Detected (Not Detect); Coronavirus 229E Not Detected (Not Detect); Coronavirus HKU1 Not Detected (Not Detect); Coronavirus NL63 Not Detected (Not Detect); Coronavirus OC43 Not Detected (Not Detect); Human Metapneumovirus Not Detected (Not Detect); Human Rhinovirus/Enterovirus Not Detected (Not Detect); Influenza A Subtype 2009 H1 Not Detected (Not Detect); Influenza B Not Detected (Not Detect); Parainfluenza Virus 1 Not Detected (Not Detect); Parainfluenza Virus 2 Not Detected (Not Detect); Parainfluenza Virus 3 Not Detected (Not Detect); Parainfluenza Virus 4 Not Detected (Not Detect); Respiratory Syncytial Virus Not Detected (Not Detect)
[2020-07-28 10:15] LABS: Bordetella Pertussis Not Detected (Not Detect); Chlamydophila pneumoniae Not Detected (Not Detect); Mycoplasma pneumoniae Not Detected (Not Detect)
[2020-07-28] MEDS ORDERED: Metoprolol XL (24 HR) Succ 25 MG TAB.ER.24H PO SCH (10:15)
[2020-07-28 10:32] LABS: Bacteria,Urine Few per hpf (None-Few); Bilirubin,Urine Negative (Negative); Blood,Urine Negative (Negative); Clarity,Urine Clear (Clear); Color,Urine Light-Yellow (Yellow); Glucose,Urine (UA) Normal (Normal); Ketones,Urine 10 mg/dL (Negative); Leukocyte Esterase,Urine Small (Negative); Nitrite,Urine Negative (Negative); Protein,Urine Negative (Neg-Trace); RBC,Urine 0-3 per hpf (0-3); Specific Gravity,Urine > 1.030 (1.010-1.025); Urobilinogen,Urine Normal (Normal)
[2020-07-28 10:46] LABS: Amphetamine Screen,Urine Negative ng/mL (Cutoff=1000); Barbiturate Screen,Urine Negative ng/mL (Cutoff=200); Benzodiazepines Screen,Urine Negative ng/mL (Cutoff=200); Cannabinoid Screen,Urine Negative ng/mL (Cutoff = 50); Cocaine Screen,Urine Positive ng/mL (Cutoff= 300); Opiate Screen,Urine Negative ng/mL (Cutoff=300); Phencyclidine Screen,Urine Negative ng/mL (Cutoff=25)
[2020-07-28 10:50] LABS: Hematocrit 39.8 % (37.5-50.1); Hemoglobin 13.3 g/dL (12.9-16.9); Mean Corpuscular HGB Conc 33.4 g/dL (31.6-35.5); Mean Corpuscular Hemoglobin 30.6 pg (28.0-33.3); Mean Corpuscular Volume 91.5 fL (83.0-100.0); Platelet Count 225 K/mcL (140-400); Red Blood Count 4.35 M/mcL (4.19-5.50); Red Cell Distribution Width 12.9 % (11.5-14.5); White Blood Count 9.5 K/mcL (4.3-11.1)
[2020-07-28] MEDS: Heparin 25,000UNIT/250ML 1/2NS 25,000 UNIT/250 ML IV.SOLN IVC SCH (10:57)
[2020-07-28 10:59] LABS: Prothrombin Time 11.8 Seconds (9.4-12.1)
[2020-07-28 11:02] LABS: Heparin anti-factor XA UFH < 0.04 IU/mL (0.30-0.70)
[2020-07-28] MEDS: carvediloL 6.25 MG TABLET PO SCH ×2 (11:45→17:49)
[2020-07-29] MEDS: Heparin 25,000UNIT/250ML 1/2NS 25,000 UNIT/250 ML IV.SOLN IVC SCH (03:22)
[2020-07-29 05:52] LABS: Prothrombin Time 11.5 Seconds (9.4-12.1)
[2020-07-29 06:05] LABS: BUN/Creatinine Ratio 17 (6-26); Blood Urea Nitrogen 16 mg/dL (6-20); Calcium 8.7 mg/dL (8.6-10.3); Carbon Dioxide 27 mEq/L (23-29); Chloride 107 mEq/L (98-107); Glucose 127 mg/dL (70-105); Osmolality,Calculated 291 (280-300); Potassium 4.3 mEq/L (3.5-5.1); Sodium 139 mEq/L (136-145); eGFR For African Americans > 60 (> 60); eGFR For Non-African Americans > 60 (> 60)
[2020-07-29 06:24] LABS: Platelet Estimate Normal (Normal); Reactive Lymphocytes Present (Not Present)
[2020-07-29 06:25] LABS: Target Cells 1+ (Not Present)
[2020-07-29 07:17] LABS: Basophils # 0.1 K/mcL (0.0-0.2); Eosinophils # 0.2 K/mcL (0.0-0.6); Hematocrit 40.3 % (37.5-50.1); Hemoglobin 12.9 g/dL (12.9-16.9); Immature Granulocytes % 0.2 % (0-4); Lymphocytes # 3.2 K/mcL (0.6-4.6); Mean Corpuscular Hemoglobin 29.8 pg (28.0-33.3); Mean Corpuscular Volume 93.1 fL (83.0-100.0); Mean Platelet Volume 9.5 fL (9.4-12.4); Monocytes # 0.5 K/mcL (0.0-1.3); Platelet Count 237 K/mcL (140-400); Red Blood Count 4.33 M/mcL (4.19-5.50); Red Cell Distribution Width 12.9 % (11.5-14.5); White Blood Count 6.5 K/mcL (4.3-11.1)
[2020-07-29 07:31] LABS: Neutrophils # 2.9 K/mcL (1.6-8.9)
[2020-07-29] MEDS: carvediloL 6.25 MG TABLET PO SCH (08:52)
[2020-07-29] MEDS ORDERED: cefTRIAXone 1,000 MG in 0.9 % Sodium Chloride Mini Bag 100 ML IVPB SCH (09:00)
[2020-07-29] MEDS ORDERED: Aspirin 81 MG TAB.CHEW PO SCH (09:00)
[2020-07-29] MEDS ORDERED: Azithromycin 500 MG in 0.9 % Sodium Chloride 250 ML IVPB SCH (09:00)
[2020-07-29] MEDS ORDERED: cefTRIAXone 2,000 MG in Water for inj. (sterile) 20 ML IVP SCH (09:00)
[2020-07-29] MEDS ORDERED: Isovue-370 500 ML BOTTLE IVP ONE (10:35)
[2020-07-29] MEDS ORDERED: Nitroglycerin 0.4 MG TAB.SUBL SL PRN (10:35)
[2020-07-29] MEDS ORDERED: *HR* Labetalol 20 MG/4 ML SYRINGE IVP PRN (10:35)
[2020-07-29 11:35] VITALS: BP 126/72
[2020-07-30] MEDS ORDERED: levoFLOXacin 750 MG TABLET PO SCH (09:00)
== END 2020-07-29 15:14 | disposition home or self-care (01) ==
LOC: 2NENU 02:50 → EMEROOARM 02:50 → SUATTDRO 06:05 → 2NENU 06:43
PROVIDERS: ADMIT Student in an Organized Health Care Education/Training Program; ATTEND Internal Medicine